=== PATIENT | female | born 1945 | race Caucasian/White ===

== ENCOUNTER 2016-11-29 18:13 | Inpatient (IN) | payer MEDICARE, BC ==
[~2016-11-29] VITALS: Ht 157.5 cm; Wt 101.8 kg
[2016-11-29] VITALS (13 sets, daily range): BP systolic 172–222; BP diastolic 77–113; PULSE 64–86; RESP 16–20; TEMP 96.4–98.2; O2SAT 94–99
[~2016-11-29 18:13] MED LIST: AZAT50 PO; MAGN400T PO; PRIN20TA2 PO; PROG1CAP PO; PROT40TA PO; TOPR50TA PO
[2016-11-29] MEDS ORDERED: SODIUM CHLORIDE 0.9% FLUSH 10 ML FLUSH IVF PRN (18:30)
[2016-11-29] MEDS ORDERED: ASPIRIN 81 MG CHEW TAB PO ONE (18:30)
--- NOTE | 2016-11-29 18:31 | PD ---
HPI Chief Complaint: Chest Pain Time Seen by Provider: 18:26 Travel History International Travel<30 days: No Contact w/Intl Traveler<30days: No Traveled to known affect area: No History of Present Illness HPI Patient is a 71-year-old female comes in complaining of chest pain radiating to her left shoulder. She says she had an episode last night, but it went away after she took 2 aspirin and rested. She says this evening she was with a friend having a drinking waiting for dinner when the pain suddenly came on again. She says it's a pressure in her chest and she had some diaphoresis as well as nausea and shortness of breath with this. She says she's never had pain like this before. She was seen by applications support engineer a few years ago, said she had a stress test then that was normal, and has not seen him since. She does follow regularly with her primary care doctor. 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) Psychiatric: No Reproductive: No Respiratory: Yes Renal Failure: Yes (PD catheter removed April 2009) Sleep Apnea: Yes Thyroid Disease: No Menopausal: Yes Past Surgical History Abdominal Surgery: Yes (tenchoff catheter placement) Cardiac Surgery: No Ear Surgery: No Endocrine Surgery: No Eye Surgery: No Genitourinary Surgery: No Gynecologic Surgery: Yes (vaginal hys) Hysterectomy: Yes Joint Replacement: No Oral Surgery: Yes (total mouth extraction) Pacemaker: No Thoracic Surgery: No Other Surgery: Yes (right side kidney transplant) Social History Alcohol Use: Yes (rare occ) Tobacco Use: No Substance Use: No Allergies-Medications (Allergen,Severity, Reaction): Coded Allergies: adhesive (Unverified Allergy, Severe, 11/29/16) Reported Meds & Prescriptions Reported Meds & Active Scripts Active Reported Lisinopril 20 Mg Tab 20 Mg PO DAILY Toprol XL (Metoprolol Succinate) 50 Mg Tab 50 Mg PO DAILY Pantoprazole (Pantoprazole Sodium) 40 Mg Tab 40 Mg PO DAILY Tacrolimus 1 Mg Cap 1 Mg PO Q12H Review of Systems Except as stated in HPI: all other systems reviewed are Neg General / Constitutional: No: Fever, Chills Eyes: No: Blurred Vision HENT: No: Headaches, Lightheadedness Cardiovascular: Positive: Chest Pain or Discomfort Respiratory: Positive: Shortness of Breath Gastrointestinal: Positive: Nausea, No: Vomiting, Abdominal Pain Musculoskeletal: Positive: Pain, No: Edema Skin: No Rash, No Change in Pigmentation Neurologic: No: Weakness, Dizziness Physical Exam Narrative GENERAL: Awake and alert, in no acute distress. SKIN: Focused skin assessment warm/dry. HEAD: Atraumatic. Normocephalic. EYES: Pupils equal and round. No scleral icterus. ENT: Mucous membranes pink and moist. NECK: Trachea midline. No JVD. CARDIOVASCULAR: Regular rate and rhythm. No murmur appreciated. RESPIRATORY: No accessory muscle use. Clear to auscultation. Breath sounds equal bilaterally. GASTROINTESTINAL: Abdomen soft, non-tender, nondistended. Hepatic and splenic margins not palpable. MUSCULOSKELETAL: No obvious deformities. No clubbing. No cyanosis. Bilateral edema of the ankles. NEUROLOGICAL: Awake and alert. No obvious cranial nerve deficits. Motor grossly within normal limits. Normal speech. PSYCHIATRIC: Appropriate mood and affect; insight and judgment normal. Data Data Last Documented VS Vital Signs Date Time Temp Pulse Resp B/P (MAP) Pulse Ox O2 Delivery O2 Flow Rate FiO2 11/29/16 18:52 18 11/29/16 18:42 72 198/82 (120) 98 Room Air 11/29/16 18:15 98.2 Orders Orders Ckmb (Isoenzyme) Profile (11/29/16 18:27) Complete Blood Count With Diff (11/29/16 18:27) Comprehensive Metabolic Panel (11/29/16 18:27) Prothrombin Time / Inr (Pt) (11/29/16 18:27) Act Partial Throm Time (Ptt) (11/29/16 18:27) Troponin I (11/29/16 18:27) Chest, Single Ap (11/29/16 18:27) Ecg Monitoring (11/29/16 18:27) Bilateral Bp Monitoring (11/29/16 18:27) Iv Access Insert/Monitor (11/29/16 18:27) Oximetry (11/29/16 18:27) Oxygen Administration (11/29/16 18:27) Aspirin Chew (Aspirin Chew) (11/29/16 18:30) Sodium Chloride 0.9% Flush (Ns Flush) (11/29/16 18:30) Nitroglycerin Sl (Nitrostat Sl) (11/29/16 18:30) Labs Laboratory Tests Test 11/29/16 18:15 White Blood Count 7.7 TH/MM3 Red Blood Count 4.96 MIL/MM3 Hemoglobin 14.3 GM/DL Hematocrit 44.4 % Mean Corpuscular Volume 89.4 FL Mean Corpuscular Hemoglobin 28.8 PG Mean Corpuscular Hemoglobin Concent 32.2 % Red Cell Distribution Width 12.5 % Platelet Count 201 TH/MM3 Mean Platelet Volume 10.0 FL Neutrophils (%) (Auto) 61.6 % Lymphocytes (%) (Auto) 27.1 % Monocytes (%) (Auto) 7.3 % Eosinophils (%) (Auto) 3.7 % Basophils (%) (Auto) 0.3 % Neutrophils # (Auto) 4.7 TH/MM3 Lymphocytes # (Auto) 2.1 TH/MM3 Monocytes # (Auto) 0.6 TH/MM3 Eosinophils # (Auto) 0.3 TH/MM3 Basophils # (Auto) 0.0 TH/MM3 CBC Comment DIFF FINAL Differential Comment MDM Medical Decision Making Medical Screen Exam Complete: Yes Emergency Medical Condition: Yes Interpretation(s) ECG shows normal sinus rhythm at 84, no ST elevation or depression. There is T- wave inversions in lead 3 and aVF. Differential Diagnosis ACS versus NSTEMI versus STEMI versus pneumonia versus pneumothorax Narrative Course Patient is a 71-year-old female who comes in complaining of chest pain radiating to her left arm. Exam shows no acute abnormalities. IV established, labs sent. Patient connected to the purchasing department clerk. Patient given aspirin as well as nitroglycerin. Patient signed out to Dr. Steinberg to follow up testing and disposition the patient. Diagnosis Primary Impression: Chest pain Qualified Codes: R07.9 - Chest pain, unspecified Delfina Astorga MD Nov 29, 2016 18:31
[2016-11-29] MEDS ORDERED: LISI-515 PO (18:32)
[2016-11-29] MEDS ORDERED: TACR1CAP PO (18:32)
[2016-11-29] MEDS ORDERED: TOPR50TA PO (18:32)
[2016-11-29] MEDS ORDERED: PANT40TA3 PO (18:32)
[2016-11-29] MEDS: NITROGLYCERIN 0.4 MG SL 25 TABS/BTL SL SCH ×3 (18:47→19:00)
[2016-11-29 18:51] LABS: AUTOMATED NEUTROPHIL # 4.7 TH/MM3 (1.8-7.7); BASOPHIL % 0.3 % (0.0-2.0); EOSINOPHIL # 0.3 TH/MM3 (0-0.4); EOSINOPHIL % 3.7 % (0.0-4.0); HEMATOCRIT 44.4 % (35.0-46.0); HEMO FLAGS DIFF FINAL; LYMPH % 27.1 % (9.0-44.0); LYMPHOCYTE # 2.1 TH/MM3 (1.0-4.8); MEAN CELL VOLUME 89.4 FL (80.0-100.0); MEAN CORPUSCULAR HEMOGLOBIN 28.8 PG (27.0-34.0); MEAN CORPUSCULAR HGB CONC 32.2 % (32.0-36.0); MONO % 7.3 % (0.0-8.0); NEUT % 61.6 % (16.0-70.0); PLATELET COUNT 201 TH/MM3 (150-450); RED BLOOD COUNT 4.96 MIL/MM3 (4.00-5.30); RED CELL DISTRIBUTION WIDTH 12.5 % (11.6-17.2); WHITE BLOOD COUNT 7.7 TH/MM3 (4.0-11.0)
--- NOTE | 2016-11-29 18:59 | RADRPT ---
EXAM DATE/TIME: 11/29/2016 18:42 [facility] COMPARISON: No previous studies available for comparison. INDICATIONS : Chest pain, short of breath MEDICAL HISTORY : Chronic obstructive pulmonary disease. SURGICAL HISTORY : Kidney transplant ENCOUNTER: Initial ACUITY: 1 day PAIN SCORE: 7/10 LOCATION: Bilateral chest FINDINGS: There is mild interstitial prominence, generally worse on the left than the right. No evidence of rufus eolar consolidation or significant effusion. Cardiac contours are satisfactory. CONCLUSION: Fairly diffuse interstitial prominence. Charles Dexter MD on November 29, 2016 at 18:57 Board Certified Radiologist. This report was verified electronically.
[2016-11-29 19:02] LABS: CHLORIDE 105 MEQ/L (98-107); POTASSIUM 3.5 MEQ/L (3.5-5.1); SODIUM (NA) 139 MEQ/L (136-145)
[2016-11-29 19:05] LABS: ANION GAP 9 MEQ/L (5-15); BICARBONATE 24.8 MEQ/L (21.0-32.0)
[2016-11-29 19:06] LABS: BLOOD UREA NITROGEN 26 MG/DL (7-18)
[2016-11-29 19:08] LABS: ALT (GPT) 21 U/L (10-53); INTERNATIONAL NORMALIZED RATIO 0.9 RATIO; PROTHROMBIN TIME - PATIENT 10.3 SEC (9.8-11.6)
[2016-11-29 19:09] LABS: AST (GOT) 14 U/L (15-37); GLOMERULAR FILTRATION RATE 44 ML/MIN (>89)
[2016-11-29 19:10] LABS: TOTAL BILIRUBIN ADULT 0.4 MG/DL (0.2-1.0)
[2016-11-29 19:11] LABS: ALKALINE PHOSPHATASE 99 U/L (45-117)
[2016-11-29 19:40] LABS: CREATINE KINASE 41 U/L (26-192)
--- NOTE | 2016-11-29 19:53 | PD ---
Physical Exam Time Seen by Provider: 19:[address] Bailon left this patient with me to check the laboratory and make a disposition. Data Data Last Documented VS Vital Signs Date Time Temp Pulse Resp B/P (MAP) Pulse Ox O2 Delivery O2 Flow Rate FiO2 11/29/16 19:26 64 18 178/94 (122) 94 Room Air 189/92 (124) 11/29/16 18:15 98.2 Orders Orders Ckmb (Isoenzyme) Profile (11/29/16 18:27) Complete Blood Count With Diff (11/29/16 18:27) Comprehensive Metabolic Panel (11/29/16 18:) Prothrombin Time / Inr (Pt) (11/29/16 18:) Act Partial Throm Time (Ptt) (11/29/16 18:) Troponin I (11/29/16 18:27) Chest, Single Ap (11/29/16 18:27) Ecg Monitoring (11/29/16 18:27) Bilateral Bp Monitoring (11/29/16 18:27) Iv Access Insert/Monitor (11/29/16 18:) Oximetry (11/29/16 18:27) Oxygen Administration (11/29/16 18:27) Aspirin Chew (Aspirin Chew) (11/29/16 18:30) Sodium Chloride 0.9% Flush (Ns Flush) (11/29/16 18:30) Nitroglycerin Sl (Nitrostat Sl) (11/29/16 18:30) B-Type Natriuretic Peptide (11/29/16 19:08) Hydralazine Inj (Apresoline Inj) (11/29/16 20:00) Labs Laboratory Tests Test 11/29/16 18:15 White Blood Count 7.7 TH/MM3 Red Blood Count 4.96 MIL/MM3 Hemoglobin 14.3 GM/DL Hematocrit 44.4 % Mean Corpuscular Volume 89.4 FL Mean Corpuscular Hemoglobin 28.8 PG Mean Corpuscular Hemoglobin Concent 32.2 % Red Cell Distribution Width 12.5 % Platelet Count 201 TH/MM3 Mean Platelet Volume 10.0 FL Neutrophils (%) (Auto) 61.6 % Lymphocytes (%) (Auto) 27.1 % Monocytes (%) (Auto) 7.3 % Eosinophils (%) (Auto) 3.7 % Basophils (%) (Auto) 0.3 % Neutrophils # (Auto) 4.7 TH/MM3 Lymphocytes # (Auto) 2.1 TH/MM3 Monocytes # (Auto) 0.6 TH/MM3 Eosinophils # (Auto) 0.3 TH/MM3 Basophils # (Auto) 0.0 TH/MM3 CBC Comment DIFF FINAL Differential Comment Prothrombin Time 10.3 SEC Prothromb Time International Ratio 0.9 RATIO Activated Partial Thromboplast Time 25.0 SEC Blood Urea Nitrogen 26 MG/DL Creatinine 1.20 MG/DL Random Glucose 120 MG/DL Total Protein 7.6 GM/DL Albumin 3.7 GM/DL Calcium Level 8.8 MG/DL Alkaline Phosphatase 99 U/L Aspartate Amino Transf (AST/SGOT) 14 U/L Alanine Aminotransferase (ALT/SGPT) 21 U/L Total Bilirubin 0.4 MG/DL Sodium Level 139 MEQ/L Potassium Level 3.5 MEQ/L Chloride Level 105 MEQ/L Carbon Dioxide Level 24.8 MEQ/L Anion Gap 9 MEQ/L Estimat Glomerular Filtration Rate 44 ML/MIN Total Creatine Kinase 41 U/L Troponin I LESS THAN 0.02 NG/ML B-Type Natriuretic Peptide 226 PG/ML MDM Medical Record Reviewed: Yes Supervised Visit with ALEX: No Interpretation(s) The CBC is normal. The complete metabolic profile shows a BUN of 26, creatinine 1. and GFR of 44 but is otherwise unremarkable. The BNP is 226. The troponin I is normal and the total CK is normal. The coagulation profile is normal. Differential Diagnosis Acute coronary syndrome, pleuritic pain, chest wall pain, esophageal pain, gastrointestinal pain, electrolyte disorder, anemia, pneumothorax, pneumonia, uncontrolled hypertension, chest pain etiology undetermined Narrative Course After 3 nitroglycerin sublingual for blood pressure is 189/92. Also, the patient still has some slight chest pain, 2/10. The patient will be admitted here at [facility] for chest pain and hypertension poor control. Dr. Harrison and is the patient's primary care physician and Dr. Nicholson is her efficiency miner blasting. The chest pain is concerning for unstable angina. Diagnosis Primary Impression: Chest pain Qualified Codes: R07.9 - Chest pain, unspecified Additional Impression: Hypertension, poor control Admitting Information Admitting Physician Requests: Observation Raji Steinberg MD Nov 29, 2016 19:53
[2016-11-29] MEDS ORDERED: hydrALAZINE HCL 20 MG/ML VIAL IV PUSH ONE (20:00)
[2016-11-29] MEDS ORDERED: SODIUM CHLORIDE 0.9% FLUSH 10 ML FLUSH IV FLUSH PRN (20:15)
[2016-11-29] MEDS ORDERED: ACETAMINOPHEN 325 MG TAB PO PRN (20:15)
[2016-11-29] MEDS ORDERED: METOPROLOL TARTRATE 5 MG/5 ML VIAL IV PUSH ONE (20:15)
[2016-11-29] MEDS ORDERED: SENNOSIDES 8.6 MG TAB PO PRN (20:15)
[2016-11-29] MEDS ORDERED: LACTULOSE SYRUP 20 GM/30 ML CUP PO PRN (20:15)
[2016-11-29] MEDS ORDERED: MAGNESIUM HYDROXIDE SUSP 30 ML CUP PO PRN (20:15)
[2016-11-29] MEDS ORDERED: BISACODYL 10 MG SUPP RECTAL PRN (20:15)
[2016-11-29] MEDS: DOCUSATE SODIUM 50 MG/SENNA 8.6 MG TAB PO SCH (21:00)
[2016-11-29] MEDS: SODIUM CHLORIDE 0.9% FLUSH 10 ML FLUSH IV FLUSH SCH (21:59)
[2016-11-29] MEDS: TACROLIMUS 1 MG CAP PO SCH (21:59)
[2016-11-30] VITALS (8 sets, daily range): BP systolic 142–196; BP diastolic 67–89; PULSE 74–89; RESP 13–24; TEMP 96.1–98.2; O2SAT 91–99
[2016-11-30] MEDS: HEPARIN-D5W 25,000 U/250 ML 250 ML IV PRN (05:11)
--- NOTE | 2016-11-30 05:56 | EKG ---
Date Performed: 11/29/2016 Time Performed: 18:17:45 PTAGE: 71 years EKG: Sinus rhythm ABNORMAL QRS-T ANGLE ABNORMAL ECG INTERPRETATION BASED ON A DEFAULT AGE OF 41 YEARS NO PREVIOUS TRACING DOCTOR: Charanjit Garrido Interpretating Date/Time 11/30/2016 05:53:55
[2016-11-30] MEDS: MORPHINE SULFATE 4 MG/ML INJ IV PUSH PRN ×2 (06:00→14:52)
[2016-11-30] MEDS: ONDANSETRON HCL 4 MG/2 ML VIAL IVP PRN (06:05)
[2016-11-30 07:53] LABS: AUTOMATED NEUTROPHIL # 6.9 TH/MM3 (1.8-7.7); BASOPHIL % 0.1 % (0.0-2.0); EOSINOPHIL # 0.1 TH/MM3 (0-0.4); EOSINOPHIL % 1.6 % (0.0-4.0); HEMATOCRIT 43.8 % (35.0-46.0); HEMO FLAGS DIFF FINAL; LYMPH % 11.1 % (9.0-44.0); LYMPHOCYTE # 0.9 TH/MM3 (1.0-4.8); MONO % 5.8 % (0.0-8.0); NEUT % 81.4 % (16.0-70.0); PLATELET COUNT 153 TH/MM3 (150-450); RED BLOOD COUNT 4.97 MIL/MM3 (4.00-5.30); RED CELL DISTRIBUTION WIDTH 12.1 % (11.6-17.2); WHITE BLOOD COUNT 8.4 TH/MM3 (4.0-11.0)
[2016-11-30 07:59] LABS: CHLORIDE 103 MEQ/L (98-107); POTASSIUM 3.2 MEQ/L (3.5-5.1); SODIUM (NA) 138 MEQ/L (136-145)
[2016-11-30 08:03] LABS: ANION GAP 11 MEQ/L (5-15); APTT (PATIENT) 30.5 SEC (24.3-30.1); BICARBONATE 24.5 MEQ/L (21.0-32.0); BLOOD UREA NITROGEN 19 MG/DL (7-18); PROTHROMBIN TIME - PATIENT 10.7 SEC (9.8-11.6)
[2016-11-30 08:06] LABS: ALT (GPT) 19 U/L (10-53); AST (GOT) 16 U/L (15-37); GLOMERULAR FILTRATION RATE 63 ML/MIN (>89)
[2016-11-30 08:08] LABS: TOTAL BILIRUBIN ADULT 0.7 MG/DL (0.2-1.0)
[2016-11-30 08:09] LABS: ALKALINE PHOSPHATASE 86 U/L (45-117)
[2016-11-30] MEDS: DOCUSATE SODIUM 50 MG/SENNA 8.6 MG TAB PO SCH ×2 (08:26→21:00)
[2016-11-30] MEDS: ASPIRIN EC 81 MG TABEC PO SCH (08:27)
[2016-11-30] MEDS: PANTOPRAZOLE SOD 40 MG DELAYED RELEASE TAB PO SCH (08:27)
[2016-11-30] MEDS: LISINOPRIL 20 MG TAB PO SCH (08:27)
[2016-11-30] MEDS: SODIUM CHLORIDE 0.9% FLUSH 10 ML FLUSH IV FLUSH SCH ×2 (08:36→21:09)
[2016-11-30] MEDS: TACROLIMUS 1 MG CAP PO SCH ×2 (08:36→21:08)
[2016-11-30] MEDS ORDERED: METOPROLOL SUCCINATE 50 MG EXTENDED RELEASE TAB PO SCH (09:00)
[2016-11-30] MEDS: NITROGLYCERIN 2% OINT 1 GM PACKET TOP SCH ×4 (09:10→23:33)
[2016-11-30] MEDS ORDERED: ASPIRIN 81 MG CHEW TAB CHEW ONE (09:30)
--- NOTE | 2016-11-30 10:02 | HHI.HP ---
[facility] Primary Care Physician No Primary Care Physician Admission Diagnosis chest pain, hypertension poor control Diagnoses: (1) NSTEMI (non-ST elevated myocardial infarction) Diagnosis: Principal (2) Hypertensive emergency Diagnosis: Principal (3) Acute kidney injury superimposed on chronic kidney disease Diagnosis: Principal (4) Hypokalemia Diagnosis: Principal Chief Complaint: chest pain Travel History International Travel<30 Days: No Contact w/Intl Traveler <30 Da: No Traveled to Known Affected Are: No History of Present Illness Patient evaluated at ~0840. 71-year-old female with history of hypertension, diet-controlled diabetes, COPD, sleep apnea, right kidney transplant in 2009, and family h/o early CAD presents with complaint of chest pain. Patient states she had a "little episode" of chest pain on Thursday night which lasted about one hour. She took two 81 mg aspirin at that time and sat down and went to bed. She states yesterday she felt a little short of breath but she did her chores but then last night she went out and started to feel "terrible" substernal chest pain described as "pressure". She admits to radiation of pain to the left shoulder with associated diaphoresis, shortness of breath, and nausea. She also had a mild headache at that time. She states the pain was still present upon arrival to the ED. The patient did receive 3 doses of nitroglycerin in the ED as well as 324 mg of aspirin. The patient states the pain has been intermittent since it started. She does admit to chest pain being worse on exertion. She also has dyspnea on exertion. She states she has some palpitations yesterday and this morning. She states earlier it did feel like a "cannonball" was sitting on her chest and currently it feels like a "cantaloupe ". She was given 2 mg of IV morphine at 6 AM this morning, but she states it made her feel nauseous and she was given Zofran. She denies any numbness or tingling in the upper extremities, focal extremity weakness, blurred vision, double vision, dizziness, lightheadedness, or syncope. She admits to chronic swelling in the left leg stating she has poor circulation. She denies any recent fevers or chills, cold or cough symptoms. Denies any abdominal pain, vomiting, dysuria, diarrhea, constipation. Denies h/o HLD. She had a nuclear stress test followed by cardiac catheterization years ago by Dr. Nicholson, but required no intervention. She has not seen Dr. Nicholson in years. When she was in her late 30's she was told by a doctor that she had a previous IA (possibly from EKG?). Patient states she has been stressed as her sister's has cancer and her sister is the fire claims adjuster for both he and herself. Review of Systems Constitutional: COMPLAINS OF: Diaphoretic episodes, DENIES: Fever, Chills, Dizziness Eyes: DENIES: Blurred vision, Double Vision Ears, nose, mouth, throat: DENIES: Throat pain, Ear Pain, Running Nose Respiratory: COMPLAINS OF: Shortness of breath, DENIES: Cough Cardiovascular: COMPLAINS OF: Chest pain, Palpitations, Dyspnea on Exertion, Lower Extremity Edema, DENIES: Syncope Gastrointestinal: COMPLAINS OF: Nausea, DENIES: Abdominal pain, Constipation, Diarrhea, Vomiting Genitourinary: DENIES: Dysuria Integumentary: DENIES: Rash Neurologic: COMPLAINS OF: Headache, DENIES: Localized weakness, Paresthesias Except as stated in HPI: all other systems reviewed are Neg ENT:+ "dripping" feeling in R ear x 1 month Past Family Social History Past Medical History Hypertension Diet-controlled diabetes COPD Sleep apnea; does not use CPAP due to claustrophobia History of renal failure with peritoneal dialysis; catheter was removed a few months after kidney transplant. History of RSD in the left leg; patient states pain has gone away. NLD Left leg Past Surgical History Right kidney transplant in April 2009 Total teeth extraction; upper and lower dentures since age 17 Hysterectomy Skin cancers removed from the nose and lip Reported Medications Reported Meds & Active Scripts Active Reported Lisinopril 20 Mg Tab 20 Mg PO DAILY Toprol XL (Metoprolol Succinate) 50 Mg Tab 50 Mg PO BID Pantoprazole (Pantoprazole Sodium) 40 Mg Tab 40 Mg PO QOD (Patient denies h/o GERD; states she was placed on this for prophylaxis due to all of the medications she was taking at the time of kidney transplant). Tacrolimus 1 Mg Cap 1 Mg PO Q12H Aspirin 81 mg po daily Fish oil CoQ10 Allergies: Coded Allergies: adhesive (Unverified Allergy, Severe, 11/29/16) Family History Mother: Old age onset diabetes mellitus; at age 86 from lung cancer which metastasized to the brain. Father: First IA at age 46; of IA at age 66. Paternal grandmother: of an IA in her sleep. She had 2 siblings both of whom had MIs, one of them in their 50s. Social History Lives alone. Patient drinks 2 alcoholic beverages once per week. She quit smoking cigarettes in 1980. Prior to this she smoked a couple of packs per day and started smoking at age 16. Denies illicit drug use. Physical Exam Vital Signs Vital Signs Date Time Temp Pulse Resp B/P (MAP) Pulse Ox O2 Delivery O2 Flow Rate FiO2 11/30/16 08:00 96.5 83 18 149/77 (101) 92 11/30/16 04:00 96.1 82 20 193/89 (123) 95 11/30/16 00:00 96.1 74 20 153/71 (98) 96 11/29/16 21:50 96.4 79 20 175/77 (109) 99 11/29/16 20:45 69 18 172/85 (114) 97 Room Air 11/29/16 20:39 72 18 192/83 (119) 97 Room Air 11/29/16 20:33 66 18 222/90 (134) 95 Room Air 11/29/16 20:25 68 18 199/113 (141) 95 Room Air 11/29/16 19:53 64 16 198/90 (126) 95 Room Air 11/29/16 19:26 64 18 178/94 (122) 94 Room Air 189/92 (124) 11/29/16 19:03 16 11/29/16 19:03 66 16 172/84 (113) 95 Room Air 11/29/16 19:00 64 18 94 Room Air 11/29/16 18:58 74 18 187/85 (119) 95 Room Air 11/29/16 18:50 70 18 191/88 (122) 95 Room Air 11/29/16 18:42 72 18 198/82 (120) 98 Room Air 11/29/16 18:15 98.2 86 18 222/98 (139) 98 Physical Exam GENERAL: This is a pleasant well-nourished, well-developed patient, in no apparent distress. SKIN: Warm and dry. Brown pigmentation over the Left ankle, appears as venous stasis. Circular red spots to the left lower leg appearing as ecchymosis, but patient states these are scars from prior NLD. HEAD: Atraumatic. Normocephalic. EYES: No scleral icterus. No injection or drainage. ENT: Tongue slightly dry. NECK: Trachea midline. CARDIOVASCULAR: Mildly tachycardic rate with regular rhythm. No murmurs, gallops , or rubs. RESPIRATORY: Clear to auscultation. Breath sounds equal bilaterally. No wheezes , rales, or rhonchi. RR normal. GASTROINTESTINAL: Normoactive bowel sounds. Abdomen soft, non-tender, nondistended. No guarding. MUSCULOSKELETAL: Trace pitting pre-tibial edema bilaterally. Left lower leg appears more swollen than right. See Skin. 2+ DP and TP pulses bilaterally. BACK: No CVA tenderness bilaterally. NEUROLOGICAL: Awake and alert. Motor grossly within normal limits. Five out of 5 muscle strength in B/L arms and legs. Normal speech. PSYCHIATRIC: Normal mood and affect. Insight and judgement normal. Laboratory Laboratory Tests Test 11/29/16 18:15 11/30/16 00:35 11/30/16 06:38 White Blood Count 7.7 8.4 Red Blood Count 4.96 4.97 Hemoglobin 14.3 14.4 Hematocrit 44.4 43.8 Mean Corpuscular Volume 89.4 88.0 Mean Corpuscular Hemoglobin 28.8 29.0 Mean Corpuscular Hemoglobin Concent 32.2 33.0 Red Cell Distribution Width 12.5 12.1 Platelet Count 201 153 Mean Platelet Volume 10.0 10.0 Neutrophils (%) (Auto) 61.6 81.4 Lymphocytes (%) (Auto) 27.1 11.1 Monocytes (%) (Auto) 7.3 5.8 Eosinophils (%) (Auto) 3.7 1.6 Basophils (%) (Auto) 0.3 0.1 Neutrophils # (Auto) 4.7 6.9 Lymphocytes # (Auto) 2.1 0.9 Monocytes # (Auto) 0.6 0.5 Eosinophils # (Auto) 0.3 0.1 Basophils # (Auto) 0.0 0.0 CBC Comment DIFF FINAL DIFF FINAL Differential Comment Prothrombin Time 10.3 10.7 Prothromb Time International Ratio 0.9 1.0 Activated Partial Thromboplast Time 25.0 30.5 Blood Urea Nitrogen 26 19 Creatinine 1.20 0.89 Random Glucose 120 166 Total Protein 7.6 7.4 Albumin 3.7 3.7 Calcium Level 8.8 9.0 Alkaline Phosphatase 99 86 Aspartate Amino Transf (AST/SGOT) 14 16 Alanine Aminotransferase (ALT/SGPT) 21 19 Total Bilirubin 0.4 0.7 Sodium Level 139 138 Potassium Level 3.5 3.2 Chloride Level 105 103 Carbon Dioxide Level 24.8 24.5 Anion Gap 9 11 Estimat Glomerular Filtration Rate 44 63 Total Creatine Kinase 41 Troponin I LESS THAN 0.02 0.90 0.92 B-Type Natriuretic Peptide 226 Result Diagram: 11/30/16 0638 11/30/16 0949 Imaging Last Impressions Chest X-Ray 11/29/161826 Signed Impressions: Service Date/Time: Tuesday, November 29, 2016 18:42 - CONCLUSION: Fairly diffuse interstitial prominence. MD Brii Apodaca VTE Risk Assessment Caprini VTE Risk Assessment: Mod/High Risk (score >= 2) Caprini Risk Assessment Model Point Value = 1 Point Value = 2 Point Value = 3 Point Value = 5 Age 41-60 Minor surgery BMI > 25 kg/m2 Swollen legs Varicose veins or History of unexplained or recurrent spontaneous Oral contraceptives or hormone replacement Sepsis (< 1 month) Serious lung disease, including pneumonia (< 1 month) Abnormal pulmonary function Acute myocardial infarction Congestive heart failure (< 1 month) History of inflammatory bowel disease Medical patient at bed rest Age 61-74 Arthroscopic surgery Major open surgery (> 45 min) Laparoscopic surgery (> 45 min) Malignancy Confined to bed (> 72 hours) Immobilizing plaster cast Central venous access Age >= 75 History of VTE Family history of VTE Factor V Leiden Prothrombin [id number] Lupus anticoagulant Anticardiolipin antibodies Elevated serum homocysteine Heparin-induced thrombocytopenia Other congenital or acquired thrombophilia Stroke (< 1 month) Elective arthroplasty Hip, pelvis, or leg fracture Acute spinal cord injury (< 1 month) Prophylaxis Regimen Total Risk Factor Score Risk Level Prophylaxis Regimen 0-1 Low Early ambulation 2 Moderate Order ONE of the following: *Sequential Compression Device (SCD) *Heparin 5000 units SQ BID 3-4 Higher Order ONE of the following medications: *Heparin 5000 units SQ TID *Enoxaparin/Lovenox 40 mg SQ daily (WT < 150 kg, CrCl > 30 mL/min) *Enoxaparin/Lovenox 30 mg SQ daily (WT < 150 kg, CrCl > 10-29 mL/min) *Enoxaparin/Lovenox 30 mg SQ BID (WT < 150 kg, CrCl > 30 mL/min) AND/OR *Sequential Compression Device (SCD) 5 or more Highest Order ONE of the following medications: *Heparin 5000 units SQ TID (Preferred with Epidurals) *Enoxaparin/Lovenox 40 mg SQ daily (WT < 150 kg, CrCl > 30 mL/min) *Enoxaparin/Lovenox 30 mg SQ daily (WT < 150 kg, CrCl > 10-29 mL/min) *Enoxaparin/Lovenox 30 mg SQ BID (WT < 150 kg, CrCl > 30 mL/min) AND *Sequential Compression Device (SCD) Assessment and Plan Assessment and Plan 71-year-old female with: NSTEMI: Patient had classic symptoms of substernal chest pressure with radiation to the left shoulder with associated diaphoresis, shortness of breath , and nausea. Initial troponin was less than 0.02 but increased to 0.9 overnight and remained at 0.92 this morning. Only one EKG was done from yesterday. EKG was personally interpreted which showed no ST elevation; there is T wave inversion in lead III and questionable ST depression in lead aVF. Patient still with active chest pain although improved from prior. Chest x-ray personally interpreted with diffuse mild interstitial prominence worse on the left; no effusion or consolidation. The patient may likely have some mild pulmonary edema secondary to acute IA, but BNP is only mildly elevated at 226, lungs are clear, RR normal, and patient only has trace edema of lower legs. O2 sat mildly decreased at 92% this morning. -Patient was started on IV heparin drip last night -Nitroglycerin ointment ordered to be placed on now and scheduled every 6 hours -Cardiology was consulted at 0440, but was not called. I called Dr. Arana this morning. He recommends continuing heparin drip, starting Aggrastat, beta ruma, aspirin, administering high dose statin. Agrees with Nitro. Transfer to [facility]. -Patient received 81 mg of aspirin this morning. Will order an additional 243 mg of chewable aspirin. -Continue Metoprolol -Atorvastatin 80 mg po once -Aggrastat bolus and drip started with labs -Morphine prn -Monitor pulse oximetry, O2 as needed for cp and sob -Hemoglobin A1c ordered -Lipid profile ordered -Telemetry -NPO Hypertensive emergency: BP 222/98 on presentation. Remained elevated overnight. Patient was given 5 mg IV Metoprolol at 2040. BP did improve to 149/77 this morning. -Patient to continue home metoprolol succinate 50 mg by mouth twice a day (as opposed to daily as written in med rec) -Continue home Lisinopril 20 mg po daily -Nitro -I was called at ~noon. RN tells me patient's BP is again elevated at 196/88, HR 90. Will order hydralazine 10 mg q4h prn SBP/DBP >/= 180/100. EMERSON on CKD: BUN/Cr 26/1.20 yesterday resolved this morning. Upon review of previous labs, patient appears to have CKD Stage 3. H/o kidney transplant. -Monitor BMP Hypokalemia: K+ 3.2 this morning. -40 mEq po KCl ordered -Mg level 1.5. Will order 2g MgSO4 IV -Repeat am BMP and Mg level. S/p R kidney transplant in 2009: Continue Tacrolimus. GI prophylaxis: Protonix DVT prophylaxis: SCDs, on heparin IV Admitted to inpatient. Code Status FULL CODE Discussed Condition With patient, RN, Dr. Arana, Dr. Boudreaux Physician Certification 2 Midnight Certification Type: Admission for Inpatient Services Order for Inpatient Services The services are ordered in accordance with Medicare regulations or non- Medicare payer requirements, as applicable. In the case of services not specified as inpatient-only, they are appropriately provided as inpatient services in accordance with the 2-midnight benchmark. Estimated LOS (days): 2 2 days is the estimated time the patient will need to remain in the hospital, assuming treatment plan goals are met and no additional complications. Post-Hospital Plan: Not yet determined Annamaria Alva Nov 30, 2016 10:02
[2016-11-30] MEDS ORDERED: POTASSIUM CHLORIDE 20 MEQ CONTROLLED RELEASE TAB PO ONE (10:15)
[2016-11-30] MEDS ORDERED: TIROFIBAN BOLUS IV ONE (10:30)
[2016-11-30] MEDS ORDERED: ATORVASTATIN 80 MG TAB PO ONE (11:00)
[2016-11-30] MEDS: TIROFIBAN INFUSION INJ 250 ML IV SCH (11:57)
[2016-11-30] MEDS ORDERED: hydrALAZINE HCL 20 MG/ML VIAL IV PUSH PRN (12:15)
--- NOTE | 2016-11-30 13:02 | MB ---
cc: REYNAELIZABETH DATE OF CONSULTATION: 11/30/2016. HISTORY OF PRESENT ILLNESS: A 71-year-old white female with a history of hypertension, diabetes mellitus and kidney transplant in 2009 who has had shortness of breath for the last two weeks. She developed substernal chest discomfort on Thursday night. The pain radiated into the left shoulder and it was associated with diaphoresis, shortness of breath, nausea and mild headache. The patient presented to the [facility] Emergency Room. She has been ruled in for a myocardial infarction by enzymes. She has some mild discomfort in the lower substernal area but her symptoms are markedly improved on medical therapy. She has had increased blood pressure. PAST MEDICAL HISTORY: Her past medical history is positive for: 1. Hypertension. 2. Diabetes mellitus. 3. COPD. 4. Sleep apnea. 5. Renal failure. 6. Kidney transplant in 2009. 7. left leg. 8. left leg. 9. Teeth extraction. 10. Hysterectomy. 11. Skin cancer surgery. MEDICATIONS: 1. Tacrolimus. 2. Pantoprazole. 3. Toprol XL 50 milligrams twice a day. 4. Lisinopril 20 milligrams a day. ALLERGIES: None. SOCIAL HISTORY: The patient does not smoke. She drinks two drinks a week. FAMILY HISTORY: Family history is positive for heart disease in her father at an early age. REVIEW OF SYSTEMS: The review of systems is otherwise negative. PHYSICAL EXAMINATION: VITAL SIGNS: Blood pressure 190/80, pulse 85 and regular. HEAD, EYES, EARS, NOSE, THROAT: Negative. NECK: 2+ carotid upstrokes, no bruits. LUNGS: Clear. HEART: Regular rate and rhythm with no murmurs, rubs or gallops. ABDOMEN: Abdomen soft. No bruits. EXTREMITIES: 2+ distal pulses. NEUROLOGIC: Grossly nonfocal. EKGS: EKG was reviewed and showed normal sinus rhythm with normal axis and intervals, nonspecific inferior S-T-T changes. LABORATORY DATA: Hemoglobin 14.4. Potassium 3.2 and creatinine 0.9. AST 16, ALT 19. Troponin 0.90 and 0.92. BNP 226. DIAGNOSIS: 1. Non-S-T elevation myocardial infarction. 2. History of renal transplant. 3. Hypertension. 4. Diabetes mellitus. 5. COPD. 6. Sleep apnea. DISPOSITION: 1. Ms. Acuña will be monitored on telemetry. 2. Will continue therapy with heparin, Aggrastat, beta ruma, aspirin and statin. 3. Dr. Briones, her transplant physician, will be consulted in anticipation of cardiac catheterization. 4. Cardiac catheterization and coronary intervention will be scheduled tomorrow. The patient understands the risks and benefits and wishes to proceed. She understands the risk of possible renal failure and need for dialysis. I will follow her for cardiology during her hospitalization. I will also see her back for follow up in our office after discharge. MD CLAY Joshi/DEQUAN /12:28 PM /12:50 PM
--- NOTE | 2016-11-30 14:25 | MB ---
cc: ELIZA BUI MD DATE OF CONSULTATION: 11/30/2016. REASON FOR CONSULTATION: History of renal transplant who came with chest pain. HISTORY OF PRESENT ILLNESS: This is a very pleasant 71-year-old female with past medical history of hypertension, diabetes mellitus controlled on diet, chronic obstructive pulmonary disease, sleep apnea, history of renal transplant in 2009, who came to the hospital with complaint of chest pain. I was called to see the patient because she has history of a kidney transplant. She has been following with Dr. Briones. She got the renal transplant from her son who in a car accident, and this was in 2009. She has been following with Dr. Briones since then and it seems like her creatinine has been in the range of 0.8 to 1.3 most of the time. She had a creatinine of 1.2 on admission which has improved now to 0.8 to 0.9. The patient mainly came because she had this chest pain that started initially with shortness of breath. She has retrosternal chest pain in the left shoulder area which started on Thursday night and lasted for an hour. She took aspirin and went to bed and she was feeling better and then the breathing got worse and the chest pain was getting worse and it was a pressure-like pain associated with excessive sweating and more shortness of breath and nausea. There was no vomiting except she vomited once. She went to the [facility] Emergency Room and she was transferred here. She still has retrosternal pain but it is better than before. She denies any dysuria or hematuria or difficulty in passing urine. There is no history of diarrhea. She has been taking her medications regularly. She did not take any nonsteroidal antiinflammatory drugs. PAST MEDICAL HISTORY: 1. Hypertension. 2. Diabetes mellitus controlled on diet. 3. COPD. 4. Sleep apnea. 5. History of renal transplant in 2009. 6. History of end-stage renal disease from before. PAST SURGICAL HISTORY: 1. Renal transplant in April of 2009. 2. History of tooth extraction. 3. Hysterectomy. 4. Skin cancer removal. REVIEW OF SYSTEMS: There is no history of fever. She has had this worsening shortness of breath associated with nausea and diaphoresis and chest pain which was retrosternal and then the left shoulder and it was intermittent off and on. It is not related to exertion. There is no abdominal pain. There is no dysuria or hematuria. There is no history of diarrhea. She vomited once when she was in the emergency room. SOCIAL HISTORY: The patient is single, lives alone. She stopped smoking in 1980. Occasionally drinks alcoholic beverages. FAMILY HISTORY: Her sister has some renal disease. The mother had heart disease. ALLERGIES She is allergic to no medications. MEDICATIONS: 1. Tirofiban. 2. Blanquita-Colace one tablet twice a day. 3. Metoprolol 50 milligrams twice a day. 4. Aspirin 81 milligrams daily. 5. Lisinopril 20 milligrams once a day. 6. Protonix 40 milligrams daily. 7. Pravachol 40 milligrams once a day. 8. Tacrolimus 1 milligrams q. 12 hours. 9. Nitroglycerin 2% one inch q. 6 hours. PHYSICAL EXAMINATION: GENERAL: On examination, the patient is awake and alert and she is not in acute distress. VITAL SIGNS: Her last blood pressure is 149/77. Her blood pressure was much higher before and the highest recorded was 222/90. Her temperature is 96.5%. Oxygen saturation on room air is 97%. HEAD, EYES, EARS, NOSE, THROAT: The pupils are equal and reacting to light. Nonicteric sclerae. Conjunctivae are normal. NECK: The neck is supple. JVD is not elevated. LUNGS: The patient has bilateral good air entry with occasional wheezing. HEART: S1 and S2 regular rhythm. ABDOMEN: Abdomen obese, soft and lax. There is no tenderness. Bowel sounds positive. EXTREMITIES: She has mild edema in the legs. INVESTIGATIONS: WBC count is 8.4, hemoglobin 14.4, platelet count of 153,000, neutrophils 81.4%. Sodium 138, potassium 3.2, chloride 103, bicarbonate 24.5, BUN 19, creatinine 0.8 and the repeat one is 0.9, calcium 9.0. AST and ALT normal. Troponin I is 0.9. Total protein is 7.4. Albumin 3.7. PTT is 38. Urinalysis showing that there is no proteinuria. IMAGING STUDIES: The patient had a chest x-ray done which shows some interstitial prominence. ASSESSMENT AND PLAN: 1. Chest pain with possible cardiac ischemia. 2. Hypertension. Uncontrolled. 3. Post renal transplant. 4. Hypokalemia. 5. Diabetes mellitus diet-controlled. The patient has a history of renal transplant and it seems like her creatinine is at her baseline. Now she is going for cardiac catheterization tomorrow. I discussed with the patient about the possibility of contrast nephropathy. She seems to understand about that and agreed to proceed with the cardiac catheterization, which is important. She has been seen by cardiology also. I will give her some gentle hydration. She is on Prograf 1 milligram twice a day. She has been following with Dr. Briones so I will ask Dr. Briones to follow her from tomorrow. Thank you for the consultation. MD TATIANA Marinelli/DEQUAN /1:23 PM /2:08 PM
[2016-11-30] MEDS: MAGNESIUM SULFATE 1 GM PREMIX 100 ML IV SCH ×2 (14:51→16:00)
[2016-11-30 15:17] LABS: APTT (PATIENT) 38.4 SEC (24.3-30.1)
[2016-11-30] MEDS: POTASSIUM CHLORIDE INJ 10 MEQ in SODIUM CHLOR 0.9% 1000 ML INJ 1,000 ML IV SCH (15:40)
[2016-11-30] MEDS ORDERED: MAGNESIUM SULFATE 1 GM PREMIX 100 ML IV ONE (17:00)
[2016-11-30] MEDS: ACETAMINOPHEN/HYDROcodone 325 MG/5 MG TAB PO PRN ×2 (17:55→23:33)
[2016-11-30] MEDS: METOPROLOL SUCCINATE 50 MG EXTENDED RELEASE TAB PO SCH (21:09)
[2016-11-30 21:34] LABS: AUTOMATED NEUTROPHIL # 11.7 TH/MM3 (1.8-7.7); BASOPHIL % 0.2 % (0.0-2.0); EOSINOPHIL % 0.1 % (0.0-4.0); HEMATOCRIT 43.6 % (35.0-46.0); LYMPH % 5.1 % (9.0-44.0); LYMPHOCYTE # 0.7 TH/MM3 (1.0-4.8); MEAN CELL VOLUME 89.7 FL (80.0-100.0); MEAN CORPUSCULAR HEMOGLOBIN 30.2 PG (27.0-34.0); MEAN CORPUSCULAR HGB CONC 33.6 % (32.0-36.0); NEUT % 88.6 % (16.0-70.0); PLATELET COUNT 173 TH/MM3 (150-450); RED BLOOD COUNT 4.86 MIL/MM3 (4.00-5.30); RED CELL DISTRIBUTION WIDTH 12.7 % (11.6-17.2); WHITE BLOOD COUNT 13.2 TH/MM3 (4.0-11.0)
[2016-11-30 21:38] LABS: HEMO FLAGS DIFF FINAL
[2016-11-30 22:21] LABS: APTT (PATIENT) 51.8 SEC (24.3-30.1)
[2016-12-01] VITALS (12 sets, daily range): BP systolic 145–169; BP diastolic 71–86; PULSE 71–96; RESP 15–28; TEMP 97.8–98.7; O2SAT 91–94
[2016-12-01] MEDS: TIROFIBAN INFUSION INJ 250 ML IV SCH ×2 (01:26→14:57)
[2016-12-01] MEDS: ONDANSETRON HCL 4 MG/2 ML VIAL IVP PRN (01:26)
[2016-12-01] MEDS ORDERED: CHLORHEXIDINE GLUCONATE 2 % 1 PACK (2 CLOTHS)(extra cloths) TOPICAL PRN (01:30)
[2016-12-01] MEDS ORDERED: CHLORHEXIDINE GLUCONATE 2 % 1 PACK (2 CLOTHS)(taper/protocol) TOPICAL SCH (04:00)
[2016-12-01] MEDS: HEPARIN-D5W 25,000 U/250 ML 250 ML IV PRN (04:27)
[2016-12-01 04:51] LABS: AUTOMATED NEUTROPHIL # 12.2 TH/MM3 (1.8-7.7); BASOPHIL % 0.1 % (0.0-2.0); EOSINOPHIL % 0.1 % (0.0-4.0); HEMATOCRIT 41.9 % (35.0-46.0); HEMO FLAGS DIFF FINAL; LYMPH % 4.7 % (9.0-44.0); LYMPHOCYTE # 0.7 TH/MM3 (1.0-4.8); MEAN CELL VOLUME 89.8 FL (80.0-100.0); MEAN CORPUSCULAR HEMOGLOBIN 29.5 PG (27.0-34.0); MEAN CORPUSCULAR HGB CONC 32.8 % (32.0-36.0); MONO % 7.2 % (0.0-8.0); NEUT % 87.9 % (16.0-70.0); PLATELET COUNT 172 TH/MM3 (150-450); RED BLOOD COUNT 4.67 MIL/MM3 (4.00-5.30); RED CELL DISTRIBUTION WIDTH 13.1 % (11.6-17.2); WHITE BLOOD COUNT 13.9 TH/MM3 (4.0-11.0)
[2016-12-01] MEDS: POTASSIUM CHLORIDE INJ 10 MEQ in SODIUM CHLOR 0.9% 1000 ML INJ 1,000 ML IV SCH ×3 (04:52→22:42)
[2016-12-01 05:03] LABS: APTT (PATIENT) 57.7 SEC (24.3-30.1)
[2016-12-01 05:05] LABS: BICARBONATE 25.3 MEQ/L (21.0-32.0); POTASSIUM 3.8 MEQ/L (3.5-5.1)
[2016-12-01] MEDS: NITROGLYCERIN 2% OINT 1 GM PACKET TOP SCH ×3 (05:05→18:00)
[2016-12-01 05:07] LABS: HDL CHOLESTEROL 59.8 MG/DL (40.0-60.0)
[2016-12-01] MEDS: PANTOPRAZOLE SOD 40 MG DELAYED RELEASE TAB PO SCH (08:18)
[2016-12-01] MEDS: TACROLIMUS 1 MG CAP PO SCH ×2 (08:18→23:45)
[2016-12-01] MEDS: DOCUSATE SODIUM 50 MG/SENNA 8.6 MG TAB PO SCH ×2 (08:18→21:00)
[2016-12-01] MEDS: SODIUM CHLORIDE 0.9% FLUSH 10 ML FLUSH IV FLUSH SCH ×2 (08:18→23:46)
[2016-12-01] MEDS: LISINOPRIL 20 MG TAB PO SCH (09:00)
[2016-12-01] MEDS ORDERED: PRAVASTATIN SOD 40 MG TAB PO SCH (09:00)
[2016-12-01] MEDS: METOPROLOL SUCCINATE 50 MG EXTENDED RELEASE TAB PO SCH ×2 (09:00→23:46)
[2016-12-01] MEDS: ASPIRIN EC 81 MG TABEC PO SCH (09:00)
[2016-12-01 10:15] LABS: HEMOGLOBIN Ao 83.8 %; HEMOGLOBIN F 1.3 %; HEMOGLOBIN LA1C 1.9 %; HEMOGLOBIN P3 5.8 %
[2016-12-01] MEDS ORDERED: IOHEXOL 350 MG/ML 100 ML BTL (for Cath Lab) OTHER ONE (12:47)
[2016-12-01] MEDS: ACETAMINOPHEN/HYDROcodone 325 MG/5 MG TAB PO PRN (13:45)
--- NOTE | 2016-12-01 14:02 | HHI.NPPN ---
Subjective History of Present Illness patient is doing well, has some left shoulder pain Review of Systems Cardiovascular Cardiac: Chest Pain Objective Data Data Vital Signs Date Time Temp Pulse Resp B/P (MAP) Pulse Ox O2 Delivery O2 Flow Rate FiO2 12/01/16 12:01 98.0 80 28 164/79 (107) 94 12/01/16 12:00 81 12/01/16 11:00 71 16 169/86 (113) 93 12/01/16 10:27 93 12/01/16 10:00 71 12/01/16 10:00 71 15 166/79 (108) 94 12/01/16 09:02 78 17 161/74 (103) 92 12/01/16 08:00 98.2 71 19 151/81 (104) 93 12/01/16 08:00 71 12/01/16 07:01 80 22 160/71 (100) 93 12/01/16 04:00 97.8 84 18 145/75 (98) 93 12/01/16 04:00 84 12/01/16 00:00 92 12/01/16 00:00 97.9 92 20 153/75 (101) 91 11/30/16 20:00 98.2 88 24 142/67 (92) 94 11/30/16 20:00 88 11/30/16 19:50 95 11/30/16 16:00 97.9 89 18 150/67 (94) 91 -: 12/01/16 0354 12/01/16 0354 Physical Exam General Appearance: Well Developed, Well Nourished Neck Neck Exam: Neck Supple Pulmonary Resp Exam: Clear Bilaterally, Breath Sounds Equal Cardiology CV Exam: Regular, Normal Sinus Rhythm Gastrointestinal/Abdomen GI Exam: Soft, Non-Tender, Bowel Sounds Present Integumentary Skin Exam: Clear Extremeties Extremities Exam: No Edema Neurologic Neuro Exam: Alert, Awake, Oriented Assessment/Plan Problem List: (1) Kidney transplant status, cadaveric ICD Codes: Z94.0 - Kidney transplant status Plan: Cr 0.8 on Prograf 1 mg q 12 on IVF NS with KCL I increased the rate to 125 cc/hr explained dye toxicity and risk of ARF depending on heart cath and extent of dye used (2) Chest pain ICD Codes: R07.9 - Chest pain, unspecified Status: Acute (3) Hypertension, poor control ICD Codes: I10 - Essential (primary) hypertension Status: Acute Plan: Labile Problem Qualifiers (1) Chest pain: Qualified Codes: R07.9 - Chest pain, unspecified Melinda Briones MD Dec 01, 2016 14:02
--- NOTE | 2016-12-01 14:10 | HHI.NPPN ---
Subjective History of Present Illness patient is doing well, has some left shoulder pain Review of Systems Cardiovascular Cardiac: Chest Pain Objective Data Data Vital Signs Date Time Temp Pulse Resp B/P (MAP) Pulse Ox O2 Delivery O2 Flow Rate FiO2 12/01/16 12:01 98.0 80 28 164/79 (107) 94 12/01/16 12:00 81 12/01/16 11:00 71 16 169/86 (113) 93 12/01/16 10:27 93 12/01/16 10:00 71 12/01/16 10:00 71 15 166/79 (108) 94 12/01/16 09:02 78 17 161/74 (103) 92 12/01/16 08:00 98.2 71 19 151/81 (104) 93 12/01/16 08:00 71 12/01/16 07:01 80 22 160/71 (100) 93 12/01/16 04:00 97.8 84 18 145/75 (98) 93 12/01/16 04:00 84 12/01/16 00:00 92 12/01/16 00:00 97.9 92 20 153/75 (101) 91 11/30/16 20:00 98.2 88 24 142/67 (92) 94 11/30/16 20:00 88 11/30/16 19:50 95 11/30/16 16:00 97.9 89 18 150/67 (94) 91 -: 12/01/16 0354 12/01/16 0354 Physical Exam General Appearance: Well Developed, Well Nourished Neck Neck Exam: Neck Supple Pulmonary Resp Exam: Clear Bilaterally, Breath Sounds Equal Cardiology CV Exam: Regular, Normal Sinus Rhythm Gastrointestinal/Abdomen GI Exam: Soft, Non-Tender, Bowel Sounds Present Integumentary Skin Exam: Clear Extremeties Extremities Exam: No Edema Neurologic Neuro Exam: Alert, Awake, Oriented Assessment/Plan Problem List: (1) Kidney transplant status, cadaveric ICD Codes: Z94.0 - Kidney transplant status Plan: Cr 0.8 on Prograf 1 mg q 12 on IVF NS with KCL I increased the rate to 125 cc/hr/ add Mucomyst 1200 mg bid explained dye toxicity and risk of ARF depending on heart cath and extent of dye used (2) Chest pain ICD Codes: R07.9 - Chest pain, unspecified Status: Acute (3) Hypertension, poor control ICD Codes: I10 - Essential (primary) hypertension Status: Acute Plan: Labile Problem Qualifiers (1) Chest pain: Qualified Codes: R07.9 - Chest pain, unspecified Melinda Briones MD Dec 01, 2016 14:10
[2016-12-01] MEDS ORDERED: ACETYLCYSTEINE 20% 6,000 MG/30 ML ORAL SOLN VIAL PO SCH (14:15)
--- NOTE | 2016-12-01 15:38 | HHI.PR ---
Subjective Remarks This is a pleasant 71 y/o Female with hypertension, diet-controlled diabetes, COPD, sleep apnea, right kidney transplant in 2009, and family h/o early CAD presents with complaint of chest pain. Seen in his bedroom and discussed with nurse Mr. Lemus and with her Relative in the room. she will go later for Cardiac Catheterization. Objective Vital Signs Date Time Temp Pulse Resp B/P (MAP) Pulse Ox O2 Delivery O2 Flow Rate FiO2 12/01/16 14:00 72 12/01/16 12:01 98.0 80 28 164/79 (107) 94 12/01/16 12:00 81 12/01/16 11:00 71 16 169/86 (113) 93 12/01/16 10:27 93 12/01/16 10:00 71 12/01/16 10:00 71 15 166/79 (108) 94 12/01/16 09:02 78 17 161/74 (103) 92 12/01/16 08:00 98.2 71 19 151/81 (104) 93 12/01/16 08:00 71 12/01/16 07:01 80 22 160/71 (100) 93 12/01/16 04:00 97.8 84 18 145/75 (98) 93 12/01/16 04:00 84 12/01/16 00:00 92 12/01/16 00:00 97.9 92 20 153/75 (101) 91 11/30/16 20:00 98.2 88 24 142/67 (92) 94 11/30/16 20:00 88 11/30/16 19:50 95 11/30/16 16:00 97.9 89 18 150/67 (94) 91 I/O 11/30/16 11/30/16 11/30/16 12/01/16 12/01/16 12/01/16 07:00 15:00 23:00 07:00 15:00 23:00 Intake Total 480 ml 400 ml 1794 ml Balance 480 ml 400 ml 1794 ml Intake Oral 480 ml 200 ml 300 ml IV Total 200 ml 1494 ml # Voids 2 2 Result Diagram: 12/01/16 0354 12/01/16 0354 Imaging Last Impressions Chest X-Ray 11/29/161826 Signed Impressions: Service Date/Time: Saturday, November 29, 2016 18:42 - CONCLUSION: Fairly diffuse interstitial prominence. Charles Dexter MD Procedures None Other Results Laboratory Tests Test 11/29/16 18:15 11/30/16 06:38 11/30/16 11:30 12/01/16 03:54 Total Creatine Kinase 41 U/L B-Type Natriuretic Peptide 226 PG/ML Prothrombin Time 10.7 SEC Prothromb Time International Ratio 1.0 RATIO Hemoglobin A1c 6.3 % Blood Urea Nitrogen 19 MG/DL 18 MG/DL Creatinine 0.89 MG/DL 0.84 MG/DL Random Glucose 166 MG/DL 161 MG/DL Total Protein 7.4 GM/DL Albumin 3.7 GM/DL Calcium Level 9.0 MG/DL 8.4 MG/DL Alkaline Phosphatase 86 U/L Aspartate Amino Transf (AST/SGOT) 16 U/L Alanine Aminotransferase (ALT/SGPT) 19 U/L Total Bilirubin 0.7 MG/DL Sodium Level 138 MEQ/L 133 MEQ/L Potassium Level 3.2 MEQ/L 3.8 MEQ/L Chloride Level 103 MEQ/L 101 MEQ/L Carbon Dioxide Level 24.5 MEQ/L 25.3 MEQ/L Troponin I 0.92 NG/ML Nasal Screen MRSA (PCR) MRSA NOT DETECTED White Blood Count 13.9 TH/MM3 Red Blood Count 4.67 MIL/MM3 Hemoglobin 13.7 GM/DL Hematocrit 41.9 % Mean Corpuscular Volume 89.8 FL Mean Corpuscular Hemoglobin 29.5 PG Mean Corpuscular Hemoglobin Concent 32.8 % Red Cell Distribution Width 13.1 % Platelet Count 172 TH/MM3 Mean Platelet Volume 10.1 FL Neutrophils (%) (Auto) 87.9 % Lymphocytes (%) (Auto) 4.7 % Monocytes (%) (Auto) 7.2 % Eosinophils (%) (Auto) 0.1 % Basophils (%) (Auto) 0.1 % Neutrophils # (Auto) 12.2 TH/MM3 Lymphocytes # (Auto) 0.7 TH/MM3 Monocytes # (Auto) 1.0 TH/MM3 Eosinophils # (Auto) 0.0 TH/MM3 Basophils # (Auto) 0.0 TH/MM3 CBC Comment DIFF FINAL Differential Comment Activated Partial Thromboplast Time 57.7 SEC Magnesium Level 2.0 MG/DL Anion Gap 7 MEQ/L Estimat Glomerular Filtration Rate 67 ML/MIN Triglycerides Level 71 MG/DL Cholesterol Level 194 MG/DL LDL Cholesterol 120 MG/DL HDL Cholesterol 59.8 MG/DL Cholesterol/HDL Ratio 3.24 RATIO Objective Remarks GENERAL: Obesity, in no acute distress. SKIN: Warm and dry. HEAD: Atraumatic. Normocephalic. EYES: No scleral icterus. No injection or drainage. ENT: Tongue slightly dry. NECK: Trachea midline. CARDIOVASCULAR: Regular rate and rhythm. RESPIRATORY: Clear to auscultation. Breath sounds equal bilaterally. No wheezes , rales, or rhonchi. RR normal. GASTROINTESTINAL: Normoactive bowel sounds. Abdomen soft, non-tender, nondistended. No guarding. MUSCULOSKELETAL: Trace pitting pre-tibial edema bilaterally. BACK: No CVA tenderness bilaterally. NEUROLOGICAL: Awake and alert. Motor grossly within normal limits. Five out of 5 muscle strength in B/L arms and legs. Normal speech. PSYCHIATRIC: Normal mood and affect. Insight and judgement normal. Medications and IVs Current Medications Medications (Trade) Dose Ordered Sig/Tk Route Start Time Stop Time Status Last Admin (Ecotrin Ec) 81 mg DAILY PO 11/30/16 09:00 12/01/16 09:00 (NS Flush) 2 ml UNSCH PRN IV FLUSH 11/29/16 20:15 (NS Flush) 2 ml BID IV FLUSH 11/29/16 21:00 12/01/16 08:18 (Zofran Inj) 4 mg Q6H PRN IVP 11/29/16 20:15 12/01/16 01:26 (Tylenol) 650 mg Q6H PRN PO 11/29/16 20:15 11/30/16 05:24 (Drury 5-325 Mg) 1 tab Q4H PRN PO 11/29/16 20:15 12/01/16 13:45 (Morphine Inj) 2 mg Q3H PRN IV PUSH 11/29/16 20:15 11/30/16 14:52 (Blanquita-Colace) 1 tab BID PO 11/29/16 21:00 (Milk Of Magnesia Liq) 30 ml Q12H PRN PO 11/29/16 20:15 (Senokot) 17.2 mg Q12H PRN PO 11/29/16 20:15 (Dulcolax Supp) 10 mg DAILY PRN RECTAL 11/29/16 20:15 (Lactulose Liq) 30 ml DAILY PRN PO 11/29/16 20:15 (Prinivil) 20 mg DAILY PO 11/30/16 09:00 12/01/16 09:00 (Protonix) 40 mg DAILY PO 11/30/16 09:00 12/01/16 08:18 (Prograf) 1 mg Q12HR PO 11/29/16 21:00 12/01/16 08:18 Heparin Sodium/ Dextrose 250 ml @ 10 mls/hr TITRATE PRN IV 11/30/16 04:45 12/01/16 04:27 (Nitroglycerin 2% Oint) 1 inch Q6HR TOP 11/30/16 09:00 12/01/16 13:13 Tirofiban/Sodium Chloride 250 ml @ 17.01 mls/ hr [id number] IV 11/30/16 09:33 12/01/16 01:26 (Toprol Xl) 50 mg BID PO 11/30/16 21:00 12/01/16 09:00 (Apresoline Inj) 10 mg Q4H PRN IV PUSH 11/30/16 12:15 11/30/16 12:36 (Pravachol) 40 mg DAILY PO 12/01/16 09:00 12/01/16 08:17 Potassium Chloride 10 meq/ Sodium Chloride 1,005 ml @ 125 mls/hr Q8H3M IV 11/30/16 15:00 12/01/16 04:52 Miscellaneous Information Patient in critical care unit? Ass... Q361D .XX 12/01/16 01:30 (Chlorhexidine 2% Cloth) 3 pack DAILY@04 TOPICAL 12/01/16 04:00 12/05/16 04:01 12/01/16 04:00 (Chlorhexidine 2% Cloth) 3 pack UNSCH PRN TOPICAL 12/01/16 01:30 12/06/16 01:29 (Mucomyst 20% Liq) 1,200 mg BID PO 12/01/16 14:15 12/03/16 09:30 A/P Assessment and Plan 1. NSTEMI, Mild elevation of BNP to 226, Heparin drip started, Nitroglycerine, educational technology specialist consulted, Beta blockers Statin, Morphine, oxygen as needed, consulted Nephrology due to Kidney transplant previous to Cardiac Cath. 2. Hypertensive Urgency continue management 3. Acute on chronic kidney disease III, followed by Nephrology specialist, Given hydration, history of Kidney transplant 2009 asked [address] Doctor Anselmo Kidney transplant specialist 4. Hypokalemia replaced GI prophylaxis: Protonix DVT prophylaxis: SCDs, on heparin IV Code Status FULL CODE Discussed Condition With patient, nurse Mr. Lemus and her relative in the room, all questions answered to the best of my abilities. Discharge Planning Once cleared by specialists. Garrett Mejia MD Dec 01, 2016 15:38
[2016-12-01] MEDS ORDERED: MIDAZOLAM HCL 2 MG/2 ML VIAL ONE ×2 (15:47→16:26)
[2016-12-01] MEDS ORDERED: HEPARIN-NS/PF INJ 1,000 ML ONE (15:48)
[2016-12-01] MEDS ORDERED: SODIUM CHLORID 0.9% 500 ML INJ 500 ML ONE (15:49)
[2016-12-01] MEDS ORDERED: TIROFIBAN INFUSION INJ 250 ML IV ONE (15:58)
[2016-12-01] MEDS: ACETYLCYSTEINE 20% PO SCH ×2 (16:00→21:00)
[2016-12-01] MEDS ORDERED: HEPARIN SODIUM - IV 10,000 UNITS/10 ML VIAL ONE (16:15)
[2016-12-01] MEDS ORDERED: TICAGRELOR 90 MG TAB PO ONE (16:54)
--- NOTE | 2016-12-01 17:09 | CATHPROC ---
[employer] HIS Report Study Information Study Number Admission Scheduled Start Study Start [id number] Nov 30 2016 10:01AM 12/01/2016 Dec 01 2016 3:03PM [place] Service Cardiac Catheterization Admit Source Facility Department Other [facility] [employer] Professional Physician and Clinical Staff Initial Juliocesar Benavides Maxillofacial Prosthodontist Curry Cain,NEETU Recorder Sarah Moses RCIS Scrub Serafin Hernandez RCIS(BS) Procedures Performed Procedure Location (Site) Vessel Name Angiogram LV LV Ventricle Coronary Angiograms LCA Left Coronary Coronary Angiograms RCA Right Coronary Drug Eluting Inflatio LAD Prox Left Coronary PTCA LAD Prox Left Coronary Wire insertion Fem Art (right) Femoral Art Equipment Time Sports Management Intern Description Size Mfg Part Number Used/Scraped WIRE, BALANCE MIDDLEWEIGHT [id number] 16:15 [employer] 190CM Used 190CM (DB) *[id number] TRANSDUCER, TRUWAVE [id number] 15:53 GALINDO CULLEN * Used W/STOCKCOCK *[id number] 16:23 BOSTON SCI[employer] BALLOON, 2.5 15MM EMERGE MR 2.5 15MM Used *[id number] BALLOON, 3.5 12[id number] 16:36 [employer]ON SCI[employer]IFIC 3.5 12MM Used QUANTUM APEX MR *[id number] 534-548T *[id number] 534-520T *[id number] 534-552S *[id number] *[id number] 16:43 DAIG/[facility] [employer] ANGIOSEAL, FR6 VIP FR 6 Used *[id number] 15:53 MEDLINE INDUSTRIES PACK, CCL CUSTOM * Used *[id number] 15:53 MEDLINE PACER PEN, SKIN DUAL W/ RULER * Used *[id number] STENT, 3.5 26 RESOLUTE [id number] 16:30 MEDTRONIC 3.5 26 Used INTEGRITY RX *[id number] 16:25 Giraffic 30 KRISHAN INDEFLATOR Used *[id number] 16:15 Giraffic SHEATH, FR6.5 PRELUDE 11CM FR 6.5 038ACT Used *[id number] 15:53 Giraffic WIRE, 3MMJ .035 180CM 180CM Used *[id number] PROBE COVER, STERILE [id number] 15:53 MICROTEK MEDICAL * Used ULTRASOUND W/ GEL *[id number] 15:53 NAMIC MANIFOLD, 4 PORT * Used *[id number] 15:53 NAMIC TUBING, HIGH PRESSURE 48" 48" Used *[id number] 16:08 NYCOMED OMNIPAQUE, 300 MG, 50ML 50ML [id number] Used 15:53 NYCOMED OMNIPAQUE, 350 MG, 150ML 150ML [id number] Used [id number] 15:53 FOWLER MEDICAL BLANKET,WARM AIR CCL * Used *[id number] 15:53 TERUMO MEDICAL SHEATH, FR5 TERUMO (10CM) FR 5 Used *[id number] Equipment Model, Serial, Lot Number and Expiration Data Description Model Number Serial Number Lot Number Expiration Date ANGIOSEAL, FR6 VIP [id number] 09-22-2017 BALLOON, 2.5 15MM EMERGE MR [id number] 04-12-2019 BALLOON, 3.5 12MM NC QUANTUM [id number] 10-21-2019 APEX MR STENT, 3.5 26 RESOLUTE [id number] 09-07-2017 INTEGRITY RX History: Current Medications Medication Dosage/Unit Route Frequency Last Date/Time Taken LISINOPRIL Toprol ASA FISH OIL History: Risk Factors Family History of Hypertension Dyslipidemia Previous OR Previous Heart Failure Premature CAD Yes Yes Yes No No Prior Valve Prior PCI Prior CABG Surgery No No No Cerebrovascular Peripheral Artery Chronic Lung On Dialysis Diabetes Diabetes Therapy Disease Disease Disease No No No Yes Yes Diet History: Symptoms/Diagnosis Selection Items Chest pain Palpitations SOB History: Stress Tests Stress or Imaging Studies Performed No History: Other Disease Selection Items Cancer History: Other Current Smoker Method Quit Packs a Day Years Used Pack Years No Cigarettes 25 Years Ago 2 20 40 Labs Hgb (g/dl) Hct (%) Platelets (thousands) 11.60-17.00 35.00-51.00 150.00-450.00 13.7 41.9 172 Glucose (mg/dl) BUN (mg/dl) Creatinine (mg/dl) BUN:Creatinine (1:x) 74.00-106.00 7.00-18.00 0.50-1.30 10.00-20.00 161 18 0.8 22.5 Na (meq/l) K (meq/l) Cl (meq/l) CO2 (mmol/L) Ca (mg/dl) 136.00-145.00 3.50-5.10 98.00-107.00 21.00-32.00 8.50-10.10 133 3.8 101 25.3 8.4 INR (PTT:PT) 0.90-1.10 1 Troponin I (ng/ml) CPK (u/l) CPK-MB (ng/ML) 0.02-0.05 26.00-308.00 0.50-3.60 0.92 41 Not Drawn Medication Medication Total Dose (Bolus/Oral) Medication Total Dosage/Unit 1% XYLOCAINE 20 mL BRILINTA 180 mg FENTANYL 50 mcg HEPARIN 6000 units NTG (IC) 200 mcg VERSED 2 mg Medications (Bolus/Oral) Medication Time Given Dosage/Unit Administered By Reason 1% XYLOCAINE 12/01/2016 4:02:42 PM 20 mL Juliocesar Arana 20 mL 1% XYLOCAINE given in lab by Juliocesar Arana in Right Groin via Subcutaneous. VERSED 12/01/2016 4:05:02 PM 1 mg Curry Cain 1 mg VERSED given in lab by Curry Cain RN via Peripheral IV. Ordered by Juliocesar Arana. FENTANYL 12/01/2016 4:05:28 PM 50 mcg Curry Cain 50 mcg FENTANYL given in lab by Curry Cain RN via Peripheral IV. Ordered by Juliocesar Arana. HEPARIN 12/01/2016 4:18:00 PM 6000 units Curry Cain 6000 units HEPARIN given in lab by Curry Cain RN via Peripheral IV. Ordered by Juliocesar Arana. NTG (IC) 12/01/2016 4:24:03 PM 200 mcg Juliocesar Arana 200 mcg NTG (IC) given in lab by Juliocesar Arana via Intra-coronary. Ordered by Juliocesar Arana. VERSED 12/01/2016 4:27:11 PM 1 mg BrentonoCurry 1 mg VERSED given in lab by Curry Cain RN via Peripheral IV. Ordered by Juliocesar Arana. BRILINTA 12/01/2016 4:58:45 PM 180 mg Curry Cain 180 mg BRILINTA given in lab by Curry Cain RN via Oral. Ordered by Juliocesar Arana. Medication (Drip) Medication Time Given Dosage/Unit Concentration/Unit Diluent (ml) Solutio n AGGRASTAT DRIP 12/01/2016 3:48:09 PM 0.15 mcg/kg/min 17 mg 250 NaCl .9 Patient arrived on 0.15 mcg/kg/min AGGRASTAT DRIP in Right Antecubital via Peripheral IV. Pump/Drip F low = 12.71 ml/hr using NaCl .9 with a concentration of 17 mg in 250 ml. IV Solutions 12/01/2016 3:48:40 PM 0 mL (IV) NaCl .9 Patient arrived on IV Solutions in Right Wrist via Peripheral IV. Pump/Drip Flow = 20 ml/hr using NaC l .9. Initial Case Assessment Cardiovascular HR Rhythm NIBP 86 SR 169/87 Circulatory - Right Pulses Dorsalis Pedis Femoral 2 2 Scale (0,1,2,3,4,d) Circulatory - Left Pulses Dorsalis Pedis Femoral 2 2 Scale (0,1,2,3,4,d) Respiration - General Respiration Rate SpO2 (%) (B/min) 20 94 Final Case Assessment Cardiovascular HR Rhythm NIBP Chest Pain 83 sr 173/93 0 Circulatory - Right Pulses Dorsalis Pedis Femoral 2 2 Scale (0,1,2,3,4,d) Circulatory - Left Pulses Dorsalis Pedis Femoral 2 2 Scale (0,1,2,3,4,d) Neurological State Oriented to time-place- Alert Moves all extremities person Respiration - General Respiration Rate SpO2 (%) O2 (lpm) (B/min) 15 93 2 Chronological Log Time Study Chronological Log 15:31:11 Patient arrived via Bed. 15:31:12 Patient Name, D.O.B, / Armband Verified By R.N. 15:31:13 Consent signed by the physician and the patient and verified by the [employer] staff. 15:31:14 Pre-op and post- op instructions given; patient acknowledges understanding of instructions. 15:31:14 Verbal Stimulation=2 Physical Stimulation=2 Airway=2 Respiration=2 TOTAL=8. (0=absent, 1=li mited, 2=present) 15:31:15 Presedation assessment performed by [employer] Professional RN. 15:31:17 Patient has been NPO for Less than 6Hrs. 15:31:18 Skin Breakdown-NONE 15:31:19 Patient Warmer Placed on the Table. 15:31:21 A # 20 IV was noted in the Antecubital (right). Grade = 0 15:31:23 History and physical on the chart or being dictated. Vitals capture started with the following parameters, Patient=Adult, Interval=3 min, Initial Pr gnnfat=013 mmHg, 15:44:25 Deflation Rate=5 mmHg, Cuff placed on Left Ankle 15:46:23 HR=86 bpm, SIKB=203/87 mmhg, SpO2=93 %, Resp=21 B/min, Pain=0, Angeline=10, Lara=2 Assessment: Initial Case, HR=86 BPM, Rhythm=SR, WQYO=977/87 mmhg Right Pulses: Jer Ped=2, Femoral=2 15:46:24 Left Pulses: Jer Ped=2, Femoral=2 Respiration: Resp=20 B/min, SpO2=94 % 15:47:37 A # 20 IV was noted in the Wrist (right). Grade = 0 Patient arrived on 0.15 mcg/kg/min AGGRASTAT DRIP in Right Antecubital via Peripheral IV. Pump/ Drip Flow = 12.71 15:48:09 ml/hr using NaCl .9 with a concentration of 17 mg in 250 ml. 15:48:24 HR=82 bpm, NAMM=908/91 mmhg, SpO2=91.0 %, Resp=18 B/min, Pain=0, Angeline=10, Lara=2 15:48:40 Patient arrived on IV Solutions in Right Wrist via Peripheral IV. Pump/Drip Flow = 20 ml/hr using NaCl .9. 15:51:26 HR=84 bpm, PTQF=926/87 mmhg, SpO2=93.0 %, Resp=17 B/min, Pain=0, Angeline=10, Lara=2 15:51:38 Pressure channel 1 zeroed. 15:54:08 Reference ECG taken 15:54:26 HR=91 bpm, FVKH=099/85 mmhg, SpO2=93.0 %, Resp=17 B/min, Pain=0, Angeline=10, Lara=2 15:57:31 HR=83 bpm, VIFV=537/90 mmhg, SpO2=94 %, Resp=17 B/min, Angeline=10 16:00:27 HR=80 bpm, VUVV=193/88 mmhg, SpO2=94.0 %, Resp=17 B/min, Angeline=10 Time Out. Correct patient, correct procedure, correct physician, power injector loaded, or not loaded with contrast with 16:02:23 surgical team present. Time Out Concurred by MD and individual staff in procedure. 16:02:29 Case Start 16:02:42 20 mL 1% XYLOCAINE given in lab by Juliocesar Arana in Right Groin via Subcutaneous. 16:03:29 HR=85 bpm, UFOA=215/93 mmhg, SpO2=92.0 %, Resp=17 B/min 16:04:43 Access site was Right Femoral Artery. 16:04:53 A SHEATH, FR5 TERUMO (10CM) FR 5 was advanced into the Fem Art (right) using the Percutaneo us technique. 16:05:02 1 mg VERSED given in lab by Curry Cain, NEETU via Peripheral IV. Ordered by Dalia Arana 16:05:28 50 mcg FENTANYL given in lab by Curry Cain, NEETU via Peripheral IV. Ordered by Abraham Arana. 16:06:15 HR=74 bpm, VTRP=970/87 mmhg, Resp=12 B/min A PIGTAIL ANG. INFINITI CATHETER FR 5 was advanced over a wire. OMNIPAQUE, 350 MG, 150ML 150ML was used 16:06:17 for injections. Recorded Pressure: LV, HR=74, Condition=Condition 1 16:06:29 (Left Ventricle) LV 122/20/33 Recorded Pressure: LV, HR=71, Condition=Condition 1 16:06:32 (Left Ventricle) LV 144/23/31 16:07:33 The LV was injected at 10 cc/sec for a total of 30. OMNIPAQUE, 300 MG, 50ML 50ML used. Recorded Pressure: LV, Ao, HR=76, Condition=Condition 1 16:08:14 (Left Ventricle) LV 143/27/30, (Aorta) Ao 133/71/98 16:08:32 Catheter was removed A JL 4.0 INFINITI CATHETER FR 5 was advanced over a wire. OMNIPAQUE, 350 MG, 150ML 150ML was us ed for 16:08:33 injections. 16:09:21 HR=78 bpm, UGEG=556/75 mmhg, SpO2=94.0 %, Resp=14 B/min, Angeline=10 Recorded Pressure: Ao, HR=77, Condition=Condition 1 16:09:35 (Aorta) Ao 139/74/102 16:09:48 The LCA was injected and visualized at various angles. OMNIPAQUE, 350 MG, 150ML 150ML used . 16:12:22 HR=79 bpm, UCAW=677/82 mmhg, SpO2=94.0 %, Resp=13 B/min 16:13:49 Catheter was removed A AR MOD INFINITI CATHETER FR 5 was advanced over a wire. OMNIPAQUE, 350 MG, 150ML 150ML was us ed for 16:13:50 injections. 16:14:40 The RCA was injected and visualized at various angles. OMNIPAQUE, 350 MG, 150ML 150ML used . 16:15:07 Catheter was removed 16:15:26 HR=82 bpm, WHJW=874/89 mmhg, SpO2=95.0 %, Resp=14 B/min A SHEATH, FR6.5 PRELUDE 11CM FR 6.5 was exchanged in the Fem Art (right). This was necessary in order to 16:16:13 accomodate a larger catheter. 16:18:00 6000 units HEPARIN given in lab by Curry Cain RN via Peripheral IV. Ordered by Juliocesar Arana. 16:18:30 HR=85 bpm, UDWS=939/90 mmhg, SpO2=94.0 %, Resp=13 B/min A XB LAD 4.0 GUIDE CATHETER FR 6 was advanced over a wire. OMNIPAQUE, 350 MG, 150ML 150ML was u sed for 16:18:47 injections. 16:20:53 A WIRE, BALANCE MIDDLEWEIGHT 190CM (DB) 190CM was inserted via Fem Art (right). 16:21:26 HR=80 bpm, XPZQ=292/88 mmhg, SpO2=95.0 %, Resp=12 B/min, Angeline=10 16:23:08 Activated Clotting Time Drawn 16:24:03 200 mcg NTG (IC) given in lab by Juliocesar Arana via Intra-coronary. Ordered by Raghu Arana. 16:24:23 HR=84 bpm, BSHI=505/87 mmhg, SpO2=95.0 %, Resp=12 B/min A BALLOON, 2.5 15MM EMERGE MR 2.5 15MM was inserted over WIRE, BALANCE MIDDLEWEIGHT 190CM (DB ) 16:24:44 190CM via the LAD Prox. A BALLOON, 2.5 15MM EMERGE MR 2.5 15MM over a WIRE, BALANCE MIDDLEWEIGHT 190CM (DB) 190CM in the 16:24:46 LAD Prox was inflated using a 30 KRISHAN INDEFLATOR at 14 krishan for 20 sec. A BALLOON, 2.5 15MM EMERGE MR 2.5 15MM over a WIRE, BALANCE MIDDLEWEIGHT 190CM (DB) 190CM in the 16:25:23 LAD Prox was inflated using a 30 KRISHAN INDEFLATOR at 14 krishan for 30 sec. 16:27:11 1 mg VERSED given in lab by Curry Cain RN via Peripheral IV. Ordered by Dalia Arana 16:28:08 Balloon Removed. 16:28:28 HR=86 bpm, OXHA=101/105 mmhg, SpO2=95 %, Resp=20 B/min A STENT, 3.5 26 RESOLUTE INTEGRITY RX 3.5 26 was advanced through a XB LAD 4.0 GUIDE CATHETER F R 6 over a 16:30:16 WIRE, BALANCE MIDDLEWEIGHT 190CM (DB) 190CM. 16:30:33 HR=82 bpm, KYIR=057/91 mmhg, SpO2=93.0 %, Resp=16 B/min A STENT, 3.5 26 RESOLUTE INTEGRITY RX 3.5 26 was deployed using a 30 KRISHAN INDEFLATOR at 9 atmosp heres for 35 16:32:00 seconds in the LAD Prox. 16:33:01 Delivery device removed 16:33:34 HR=84 bpm, DFJX=867/97 mmhg, SpO2=95.0 %, Resp=20 B/min 16:34:25 ACT (Normal Range 90-180) = 395 16:36:34 HR=82 bpm, LMOH=588/89 mmhg, SpO2=95.0 %, Resp=16 B/min A BALLOON, 3.5 12MM NC QUANTUM APEX MR 3.5 12MM was inserted over WIRE, BALANCE MIDDLEWEIGHT 19 0CM 16:36:58 (DB) 190CM via the LAD Prox. A BALLOON, 3.5 12MM NC QUANTUM APEX MR 3.5 12MM over a WIRE, BALANCE MIDDLEWEIGHT 190CM (DB) 16:36:59 190CM in the LAD Prox was inflated using a 30 KRISHAN INDEFLATOR at 18 krishan for 18 sec. A BALLOON, 3.5 12MM NC QUANTUM APEX MR 3.5 12MM over a WIRE, BALANCE MIDDLEWEIGHT 190CM (DB) 16:37:52 190CM in the LAD Prox was inflated using a 30 KRISHAN INDEFLATOR at 20 krishan for 30 sec. A BALLOON, 3.5 12MM NC QUANTUM APEX MR 3.5 12MM over a WIRE, BALANCE MIDDLEWEIGHT 190CM (DB) 16:38:49 190CM in the LAD Prox was inflated using a 30 KRISHAN INDEFLATOR at 18 krishan for 25 sec. 16:39:24 Balloon Removed. 16:39:32 HR=85 bpm, FQQE=339/88 mmhg, SpO2=96.0 %, Resp=17 B/min, Angeline=10 16:40:44 Wire removed 16:40:47 Catheter was removed 16:42:36 HR=84 bpm, SJAF=009/96 mmhg, SpO2=95.0 %, Resp=16 B/min 16:42:44 An injection in the Fem Art (right) was made through the SHEATH, FR6.5 PRELUDE 11CM FR 6.5. 16:42:51 Betadine applied to site. 16:43:19 ANGIOSEAL, FR6 VIP FR 6 placement in the Fem Art (right) 16:45:16 Case End 16:45:34 HR=86 bpm, PVCC=391/106 mmhg, SpO2=95.0 %, Resp=17 B/min 16:45:45 Sterile dressing applied to site 16:48:35 HR=88 bpm, IZTB=655/92 mmhg, SpO2=93.0 %, Resp=16 B/min, Angeline=10 16:51:33 HR=85 bpm, QQWH=756/97 mmhg, SpO2=93.0 %, Resp=17 B/min 16:54:33 HR=83 bpm, MIVY=804/93 mmhg, SpO2=93.0 %, Resp=15 B/min Assessment: Final Case, HR=83 BPM, Rhythm=sr, WIAO=174/93 mmhg, Chest Pain=0 Right Pulses: Jer Ped=2, Femoral=2 16:56:25 Left Pulses: Jer Ped=2, Femoral=2 Neurological: State=Alert, Ox3, GARCIA Respiration: Resp=15 B/min, SpO2=93 %, O2=2 lpm 16:56:26 Cine recording checked. 16:57:01 Vitals capture stopped. 16:58:45 180 mg BRILINTA given in lab by Curry Cain RN via Oral. Ordered by Juliocesar Arana. 17:00:22 No case complications noted. 17:00:29 Implantable Device card placed in patient's chart. 17:00:35 Patient moved to bed 17:02:03 Patient transported to DOCU 17:06:27 Bedside Report will be given. End Study - Contrast Media Used In Study Contrast Total Opened (mL) Total Used (mL) Total Wasted (mL) Omnipaque 160 160 0 End Study - Maximum Contrast Load Max Contrast Load (mL) 600.0 End Study - Radiation Exposure Fluoro Time (minutes) 6.6 End Study - Sheaths Sheaths Pulled By Sheath Hold Time (min) Juliocesar Arana End Study - Patient Disposition Complications Transferred To Interventional Outcome No Critical Care Bed successful
[2016-12-01] MEDS ORDERED: SODIUM CHLOR 0.9% 1000 ML INJ 1,000 ML IV SCH (20:27)
[2016-12-01] MEDS ORDERED: MISC INFORMATION XX ONE (20:30)
[2016-12-01] MEDS ORDERED: ATORVASTATIN 80 MG TAB PO SCH (21:00)
[2016-12-02] VITALS (15 sets, daily range): BP systolic 141–156; BP diastolic 68–86; PULSE 84–100; RESP 14–16; TEMP 97.1–99.1; O2SAT 92–96
[2016-12-02] MEDS: NITROGLYCERIN 2% OINT 1 GM PACKET TOP SCH ×2 (00:42→06:07)
--- NOTE | 2016-12-02 06:49 | MA ---
cc: ELIZABETH ORELLANA DATE 12/01/2016 INDICATIONS Ail-[id number] myocardial function, class IV angina, cardiomyopathy. PROCEDURE PERFORMED 1. Retrograde left heart catheterization with left ventriculography and selective coronary angiography. 2. Angioplasty and stenting of the proximal left anterior descending artery. 3. Moderate sedation. ACCESS SITE Right femoral artery using ultrasound guidance. EQUIPMENT USED A 5-Peruvian pigtail catheter, 5-Peruvian JL-4 and AR modified coronary artery catheters. A 2.5 x 15 mm balloon, 3.5 x 26 mm Resolute stent at 9 atmospheres, postdilated with 3.5 x 12 mm noncompliant balloon at 20 atmospheres. MEDICATIONS 1. Versed IV 2. Fentanyl IV 3. Heparin IV 4. Nitroglycerin IC 5. Aggrastat IV drip 6. Brilinta 180 mg p.o. CONTRAST Omnipaque 150 cc COMPLICATIONS None BLOOD LOSS Less than 10 cc METHOD OF HEMOSTASIS Angio-Seal closure RESULTS HEMODYNAMICS Heart rate 80 beats per minute. Left ventricular end-diastolic pressure 22 mm. Left ventricle 140/20 to 140/74/102. LEFT VENTRICULOGRAPHY Left ventricular ejection fraction 45%. Wall motion focal anteroapical and apical hypokinesis. The rest of ventricle is hyperdynamic. No mitral regurgitation seen. CORONARY ANGIOGRAPHY Left main coronary artery is patent. The left anterior descending artery has sequential 80 and 95% stenosis in the proximal portion. Mid and distal LAD patent. First diagonal artery has 30% ostial stenosis. The circumflex artery patent. OM1 patent. The ramus intermedius is large and patent. The right coronary artery is a dominant vessel with 30% stenosis in the midportion. PDA has 30% ostial stenosis, PLV is patent. Stenosis in the proximal LAD 20 mm long, pre-GISELL flow III, post-GISELL flow III, post stenosis zero. POST INTERVENTION ANGIOGRAPHY Post intervention angiography revealed excellent patency of the stented segments and no evidence of dissection, thrombosis or distal embolization. CONCLUSIONS 1. Wwx-[id number] myocardial function. 2. Coronary artery disease with severe stenosis of the proximal left anterior descending artery. 3. Mild left ventricular dysfunction consistent with ischemic cardiomyopathy. 4. Successful angioplasty and stenting of the proximal left end anterior descending artery DISPOSITION Ms. Acuña will be monitored on telemetry after her procedure. We will continue aggressive modification of her cardiac risk factors. We will continue long-term therapy with Brilinta and aspirin. MD RONNIE Joshi /4:54 PM /6:30 AM
[2016-12-02 08:31] LABS: AUTOMATED NEUTROPHIL # 9.3 TH/MM3 (1.8-7.7); BASOPHIL % 0.1 % (0.0-2.0); EOSINOPHIL % 0.1 % (0.0-4.0); HEMATOCRIT 37.5 % (35.0-46.0); HEMO FLAGS DIFF FINAL; LYMPH % 5.5 % (9.0-44.0); LYMPHOCYTE # 0.6 TH/MM3 (1.0-4.8); MEAN CORPUSCULAR HEMOGLOBIN 29.5 PG (27.0-34.0); MEAN CORPUSCULAR HGB CONC 33.2 % (32.0-36.0); MONO % 10.1 % (0.0-8.0); NEUT % 84.2 % (16.0-70.0); PLATELET COUNT 151 TH/MM3 (150-450); RED BLOOD COUNT 4.21 MIL/MM3 (4.00-5.30); RED CELL DISTRIBUTION WIDTH 12.6 % (11.6-17.2)
[2016-12-02 08:38] LABS: APTT (PATIENT) 26.4 SEC (24.3-30.1)
[2016-12-02 09:00] LABS: BICARBONATE 23.2 MEQ/L (21.0-32.0); POTASSIUM 3.8 MEQ/L (3.5-5.1)
[2016-12-02] MEDS: DOCUSATE SODIUM 50 MG/SENNA 8.6 MG TAB PO SCH ×2 (09:00→09:43)
[2016-12-02] MEDS: ACETYLCYSTEINE 20% PO SCH (09:00)
[2016-12-02] MEDS ORDERED: TICAGRELOR 90 MG TAB PO SCH (09:00)
[2016-12-02 09:06] LABS: HDL CHOLESTEROL 58.2 MG/DL (40.0-60.0)
[2016-12-02] MEDS: TACROLIMUS 1 MG CAP PO SCH (09:43)
[2016-12-02] MEDS: PANTOPRAZOLE SOD 40 MG DELAYED RELEASE TAB PO SCH (09:43)
[2016-12-02] MEDS: ASPIRIN EC 81 MG TABEC PO SCH (09:43)
[2016-12-02] MEDS: SODIUM CHLORIDE 0.9% FLUSH 10 ML FLUSH IV FLUSH SCH (09:44)
[2016-12-02] MEDS: LISINOPRIL 20 MG TAB PO SCH (09:44)
[2016-12-02] MEDS: METOPROLOL SUCCINATE 50 MG EXTENDED RELEASE TAB PO SCH (09:44)
--- NOTE | 2016-12-02 09:58 | EKG ---
Date Performed: 12/01/2016 Time Performed: 23:45:16 PTAGE: 71 years EKG: Sinus rhythm Extensive ST-T changes may be due to myocardial ischemia Abnormal ECG PREVIOUS TRACING : 11/29/2016 18.17 Compared to the prior study, T-wave inversion is present in the anterolateral leads, suggesting ischemia. DOCTOR: Dominic Stallings Interpretating Date/Time 12/02/2016 09:56:10
--- NOTE | 2016-12-02 10:06 | EKG ---
Date Performed: 12/02/2016 Time Performed: 05:45:06 PTAGE: 71 years EKG: Sinus rhythm Short IL interval Extensive ST-T changes may be due to myocardial ischemia Abnormal ECG PREVIOUS TRACING : 12/01/2016 23.45 Compared to prior tracing no significant change DOCTOR: Dominic Stallings Interpretating Date/Time 12/02/2016 10:04:13
[2016-12-02] MEDS ORDERED: ATOR1TAB18 PO (10:57)
[2016-12-02] MEDS ORDERED: ASPI-99 PO (10:57)
[2016-12-02] MEDS ORDERED: BRIL90TA PO (10:57)
--- NOTE | 2016-12-02 10:57 | HHI.PR ---
Subjective Remarks This is a pleasant 71 y/o Female with hypertension, diet-controlled diabetes, COPD, sleep apnea, right kidney transplant in 2010, and family h/o early CAD presents with complaint of chest pain. 12/02: Seen in her bedroom stable okay to discharge from post closing specialist standpoint, her renal function is preserved after procedure placed a call to Doctor Briones to evaluate the new results to discharge patient home. Conclusion after Cardiac Cath, NSTEMI Coronary artery disease with severe stenosis of the Proximal Left anterior descending artery, Mild left ventricular dysfunction consistent with ischemic Cardiomyopathy, successful angioplasty and stenting of the proximal left end anterior descending artery. recommended to continue Aspirin and Brilinta by Doctor Juliocesar Arana, as per doctor Briones Nephrology specialist okay to discharge Home. Objective Vital Signs Date Time Temp Pulse Resp B/P (MAP) Pulse Ox O2 Delivery O2 Flow Rate FiO2 12/02/16 10:04 94 12/02/16 09:17 96 12/02/16 08:41 84 12/02/16 07:54 88 12/02/16 07:54 98.9 95 16 156/86 (109) 92 12/02/16 06:00 100 12/02/16 05:00 88 12/02/16 04:00 98 12/02/16 03:00 94 12/02/16 03:00 99.1 98 14 154/81 (105) 92 12/02/16 02:00 84 12/02/16 01:00 90 12/02/16 00:00 86 12/01/16 23:00 98.7 93 16 153/78 (103) 93 12/01/16 23:00 96 12/01/16 14:00 72 12/01/16 12:01 98.0 80 28 164/79 (107) 94 12/01/16 12:00 81 12/01/16 11:00 71 16 169/86 (113) 93 I/O 12/01/16 12/01/16 12/01/16 12/02/16 12/02/16 12/02/16 06:59 14:59 22:59 06:59 14:59 22:59 Intake Total 1794 ml 616 ml Output Total 625 ml Balance 1794 ml -9 ml Intake Oral 300 ml 240 ml IV Total 1494 ml 376 ml Output Urine Total 625 ml # Voids 2 Result Diagram: 12/02/1679912/02/16 08 Imaging Last Impressions Chest X-Ray 11/29/16 1827 Signed Impressions: Service Date/Time: Tuesday, November 29, 2016 18:42 - CONCLUSION: Fairly diffuse interstitial prominence. Charles Dexter MD Procedures None Other Results Laboratory Tests Test 11/29/16 18:15 11/30/16 06:38 11/30/16 11:30 12/01/16 03:54 B-Type Natriuretic Peptide 226 PG/ML Prothrombin Time 10.7 SEC Prothromb Time International Ratio 1.0 RATIO Hemoglobin A1c 6.3 % Blood Urea Nitrogen 19 MG/DL 18 MG/DL Creatinine 0.89 MG/DL 0.84 MG/DL Random Glucose 166 MG/DL 161 MG/DL Total Protein 7.4 GM/DL Albumin 3.7 GM/DL Calcium Level 9.0 MG/DL 8.4 MG/DL Alkaline Phosphatase 86 U/L Aspartate Amino Transf (AST/SGOT) 16 U/L Alanine Aminotransferase (ALT/SGPT) 19 U/L Total Bilirubin 0.7 MG/DL Sodium Level 138 MEQ/L 133 MEQ/L Potassium Level 3.2 MEQ/L 3.8 MEQ/L Chloride Level 103 MEQ/L 101 MEQ/L Carbon Dioxide Level 24.5 MEQ/L 25.3 MEQ/L Troponin I 0.92 NG/ML Nasal Screen MRSA (PCR) MRSA NOT DETECTED Magnesium Level 2.0 MG/DL Test 12/02/16 08:00 White Blood Count 11.0 TH/MM3 Red Blood Count 4.21 MIL/MM3 Hemoglobin 12.4 GM/DL Hematocrit 37.5 % Mean Corpuscular Volume 89.0 FL Mean Corpuscular Hemoglobin 29.5 PG Mean Corpuscular Hemoglobin Concent 33.2 % Red Cell Distribution Width 12.6 % Platelet Count 151 TH/MM3 Mean Platelet Volume 9.4 FL Neutrophils (%) (Auto) 84.2 % Lymphocytes (%) (Auto) 5.5 % Monocytes (%) (Auto) 10.1 % Eosinophils (%) (Auto) 0.1 % Basophils (%) (Auto) 0.1 % Neutrophils # (Auto) 9.3 TH/MM3 Lymphocytes # (Auto) 0.6 TH/MM3 Monocytes # (Auto) 1.1 TH/MM3 Eosinophils # (Auto) 0.0 TH/MM3 Basophils # (Auto) 0.0 TH/MM3 CBC Comment DIFF FINAL Differential Comment Activated Partial Thromboplast Time 26.4 SEC Blood Urea Nitrogen 13 MG/DL Creatinine 0.85 MG/DL Random Glucose 148 MG/DL Calcium Level 8.4 MG/DL Sodium Level 138 MEQ/L Potassium Level 3.8 MEQ/L Chloride Level 107 MEQ/L Carbon Dioxide Level 23.2 MEQ/L Anion Gap 8 MEQ/L Estimat Glomerular Filtration Rate 66 ML/MIN Total Creatine Kinase 42 U/L Triglycerides Level 84 MG/DL Cholesterol Level 145 MG/DL LDL Cholesterol 70 MG/DL HDL Cholesterol 58.2 MG/DL Cholesterol/HDL Ratio 2.49 RATIO Objective Remarks GENERAL: Obesity, in no acute distress. SKIN: Warm and dry. HEAD: Atraumatic. Normocephalic. EYES: No scleral icterus. No injection or drainage. ENT: Tongue slightly dry. NECK: Trachea midline. CARDIOVASCULAR: Regular rate and rhythm. RESPIRATORY: Clear to auscultation. Breath sounds equal bilaterally. No wheezes , rales, or rhonchi. RR normal. GASTROINTESTINAL: Normoactive bowel sounds. Abdomen soft, non-tender, nondistended. No guarding. MUSCULOSKELETAL: Trace pitting pre-tibial edema bilaterally. BACK: No CVA tenderness bilaterally. NEUROLOGICAL: Awake and alert. Motor grossly within normal limits. Five out of 5 muscle strength in B/L arms and legs. Normal speech. PSYCHIATRIC: Normal mood and affect. Insight and judgement normal. Medications and IVs Current Medications Medications (Trade) Dose Ordered Sig/Tk Route Start Time Stop Time Status Last Admin (Ecotrin Ec) 81 mg DAILY PO 11/30/16 09:00 12/02/16 09:43 (NS Flush) 2 ml UNSCH PRN IV FLUSH 11/29/16 20:15 (NS Flush) 2 ml BID IV FLUSH 11/29/16 21:00 12/02/16 09:44 (Zofran Inj) 4 mg Q6H PRN IVP 11/29/16 20:15 12/01/16 01:26 (Tylenol) 650 mg Q6H PRN PO 11/29/16 20:15 11/30/16 05:24 ([place] 5-325 Mg) 1 tab Q4H PRN PO 11/29/16 20:15 12/01/16 13:45 (Morphine Inj) 2 mg Q3H PRN IV PUSH 11/29/16 20:15 11/30/16 14:52 (Blanquita-Colace) 1 tab BID PO 11/29/16 21:00 (Milk Of Magnesia Liq) 30 ml Q12H PRN PO 11/29/16 20:15 (Senokot) 17.2 mg Q12H PRN PO 11/29/16 20:15 (Dulcolax Supp) 10 mg DAILY PRN RECTAL 11/29/16 20:15 (Lactulose Liq) 30 ml DAILY PRN PO 11/29/16 20:15 (Prinivil) 20 mg DAILY PO 11/30/16 09:00 12/02/16 09:44 (Protonix) 40 mg DAILY PO 11/30/16 09:00 12/02/16 09:43 (Prograf) 1 mg Q12HR PO 11/29/16 21:00 12/02/16 09:43 (Nitroglycerin 2% Oint) 1 inch Q6HR TOP 11/30/16 09:00 12/02/16 06:07 (Toprol Xl) 50 mg BID PO 11/30/16 21:00 12/02/16 09:44 (Apresoline Inj) 10 mg Q4H PRN IV PUSH 11/30/16 12:15 11/30/16 12:36 Potassium Chloride 10 meq/ Sodium Chloride 1,005 ml @ 125 mls/hr Q8H3M IV 11/30/16 15:00 12/01/16 22:42 Miscellaneous Information Patient in critical care unit? Ass... [id number] .XX 12/01/16 01:30 (Chlorhexidine 2% Cloth) 3 pack DAILY@04 TOPICAL 12/01/16 04:00 12/05/16 04:01 12/01/16 04:00 (Chlorhexidine 2% Cloth) 3 pack UNSCH PRN TOPICAL 12/01/16 01:30 12/06/16 01:29 Non-Formulary Medication ACETYLCYSTEINE 20%-1,200 MG(6 ML)... BID PO 12/01/16 16:00 12/03/16 09:01 12/02/16 09:00 (Brilinta) 90 mg BID PO 12/02/16 09:00 12/02/16 09:44 (Lipitor) 80 mg HS PO 12/01/16 21:00 12/01/16 23:45 A/P Assessment and Plan 1. NSTEMI, Mild elevation of BNP to 226, Heparin drip started, Nitroglycerine, post closing specialist consulted, Beta blockers Statin, Morphine, oxygen as needed, consulted Nephrology due to Kidney transplant previous to Cardiac Cath. Conclusion after Cardiac Cath, NSTEMI Coronary artery disease with severe stenosis of the Proximal Left anterior descending artery, Mild left ventricular dysfunction consistent with ischemic Cardiomyopathy, successful angioplasty and stenting of the proximal left end anterior descending artery. recommended to continue Aspirin and Brilinta by Doctor Juliocesar Arana, as per doctor Briones Nephrology specialist okay to discharge Home. 2. Hypertensive Urgency better control will continue present management 3. Acute on chronic kidney disease III, followed by Nephrology specialist, Given hydration, history of Kidney transplant 2009 asked for Doctor Briones Kidney transplant specialist, stable improved her Creatinine, okay to discharge from Doctor Briones. 4. Hypokalemia replaced GI prophylaxis: Protonix DVT prophylaxis: SCDs, on heparin IV Code Status FULL CODE Discussed Condition With patient, nurse Mr. Lemus and her relative in the room, all questions answered to the best of my abilities. Discharge Planning Discharge Home now. Garrett Mejia MD Dec 02, 2016 10:57
--- NOTE | 2016-12-02 11:03 | HHI.DS ---
Discharge Summary Admission Date Nov 30, 2016 at 10:01 Discharge Date: Dec 02, 2016 Admitting Diagnosis chest pain, hypertension poor control (1) NSTEMI (non-ST elevated myocardial infarction) ICD Code: I21.4 - Non-ST elevation (NSTEMI) myocardial infarction Diagnosis: Principal (2) Hypertensive emergency ICD Code: I16.1 - Hypertensive emergency Diagnosis: Principal (3) Acute kidney injury superimposed on chronic kidney disease ICD Code: N17.9 - Acute kidney failure, unspecified; N18.9 - Chronic kidney disease, unspecified Diagnosis: Principal (4) Hypokalemia ICD Code: E87.6 - Hypokalemia Diagnosis: Principal Procedures NSTEMI Coronary artery disease with severe stenosis of the Proximal Left anterior descending artery, Mild left ventricular dysfunction consistent with ischemic Cardiomyopathy, successful angioplasty and stenting of the proximal left end anterior descending artery. recommended to continue Aspirin and Brilinta by Doctor Juliocesar Arana Brief History - From Admission Patient evaluated at ~0840. 71-year-old female with history of hypertension, diet-controlled diabetes, COPD, sleep apnea, right kidney transplant in 2009, and family h/o early CAD presents with complaint of chest pain. Patient states she had a "little episode" of chest pain on Thursday night which lasted about one hour. She took two 81 mg aspirin at that time and sat down and went to bed. She states yesterday she felt a little short of breath but she did her chores but then last night she went out and started to feel "terrible" substernal chest pain described as "pressure". She admits to radiation of pain to the left shoulder with associated diaphoresis, shortness of breath, and nausea. She also had a mild headache at that time. She states the pain was still present upon arrival to the ED. The patient did receive 3 doses of nitroglycerin in the ED as well as 324 mg of aspirin. The patient states the pain has been intermittent since it started. She does admit to chest pain being worse on exertion. She also has dyspnea on exertion. She states she has some palpitations yesterday and this morning. She states earlier it did feel like a "cannonball" was sitting on her chest and currently it feels like a "cantaloupe ". She was given 2 mg of IV morphine at 6 AM this morning, but she states it made her feel nauseous and she was given Zofran. She denies any numbness or tingling in the upper extremities, focal extremity weakness, blurred vision, double vision, dizziness, lightheadedness, or syncope. She admits to chronic swelling in the left leg stating she has poor circulation. She denies any recent fevers or chills, cold or cough symptoms. Denies any abdominal pain, vomiting, dysuria, diarrhea, constipation. Denies h/o HLD. She had a nuclear stress test followed by cardiac catheterization years ago by Dr. Nicholson, but required no intervention. She has not seen Dr. Nicholson in years. When she was in her late 30's she was told by a doctor that she had a previous NM (possibly from EKG?). Patient states she has been stressed as her sister's has cancer and her sister is the bag filler machine operator for both he and herself. CBC/BMP: 12/02/16 0800 12/02/16 0800 Significant Findings Laboratory Tests Test 11/29/16 18:15 11/30/16 00:35 11/30/16 06:38 11/30/16 09:49 Blood Urea Nitrogen 26 MG/DL (7-18) 19 MG/DL (7-18) Creatinine 1.20 MG/DL (0.50-1.00) Random Glucose 120 MG/DL (74-106) 166 MG/DL (74-106) Aspartate Amino Transf (AST/SGOT) 14 U/L (15-37) Estimat Glomerular Filtration Rate 44 ML/MIN (>89) 63 ML/MIN (>89) 59 ML/MIN (>89) Troponin I LESS THAN 0.02 NG/ML 0.90 NG/ML (0.02-0.05) 0.92 NG/ML (0.02-0.05) B-Type Natriuretic Peptide 226 PG/ML (0-100) Neutrophils (%) (Auto) 81.4 % (16.0-70.0) Lymphocytes # (Auto) 0.9 TH/MM3 (1.0-4.8) Activated Partial Thromboplast Time 30.5 SEC (24.3-30.1) Potassium Level 3.2 MEQ/L (3.5-5.1) Hemoglobin A1c 6.3 % (4.3-6.0) Test 11/30/16 10:08 11/30/16 11:30 11/30/16 14:06 11/30/16 21:09 Activated Partial Thromboplast Time 38.0 SEC (24.3-30.1) 38.4 SEC (24.3-30.1) 51.8 SEC (24.3-30.1) White Blood Count 13.2 TH/MM3 (4.0-11.0) Neutrophils (%) (Auto) 88.6 % (16.0-70.0) Lymphocytes (%) (Auto) 5.1 % (9.0-44.0) Neutrophils # (Auto) 11.7 TH/MM3 (1.8-7.7) Lymphocytes # (Auto) 0.7 TH/MM3 (1.0-4.8) Test 12/01/16 03:54 12/02/16 08:00 White Blood Count 13.9 TH/MM3 (4.0-11.0) Neutrophils (%) (Auto) 87.9 % (16.0-70.0) 84.2 % (16.0-70.0) Lymphocytes (%) (Auto) 4.7 % (9.0-44.0) 5.5 % (9.0-44.0) Neutrophils # (Auto) 12.2 TH/MM3 (1.8-7.7) 9.3 TH/MM3 (1.8-7.7) Lymphocytes # (Auto) 0.7 TH/MM3 (1.0-4.8) 0.6 TH/MM3 (1.0-4.8) Monocytes # (Auto) 1.0 TH/MM3 (0-0.9) 1.1 TH/MM3 (0-0.9) Activated Partial Thromboplast Time 57.7 SEC (24.3-30.1) Random Glucose 161 MG/DL (74-106) 148 MG/DL (74-106) Calcium Level 8.4 MG/DL (8.5-10.1) 8.4 MG/DL (8.5-10.1) Sodium Level 133 MEQ/L (136-145) Estimat Glomerular Filtration Rate 67 ML/MIN (>89) 66 ML/MIN (>89) LDL Cholesterol 120 MG/DL (0-99) Monocytes (%) (Auto) 10.1 % (0.0-8.0) Imaging Last Impressions Chest X-Ray 11/29/16 6024 Signed Impressions: Service Date/Time: Tuesday, November 29, 2016 18:42 - CONCLUSION: Fairly diffuse interstitial prominence. Charles Dexter MD PE at Discharge GENERAL: Obesity, in no acute distress. SKIN: Warm and dry. HEAD: Atraumatic. Normocephalic. EYES: No scleral icterus. No injection or drainage. ENT: Tongue slightly dry. NECK: Trachea midline. CARDIOVASCULAR: Regular rate and rhythm. RESPIRATORY: Clear to auscultation. Breath sounds equal bilaterally. No wheezes , rales, or rhonchi. RR normal. GASTROINTESTINAL: Normoactive bowel sounds. Abdomen soft, non-tender, nondistended. No guarding. MUSCULOSKELETAL: Trace pitting pre-tibial edema bilaterally. BACK: No CVA tenderness bilaterally. NEUROLOGICAL: Awake and alert. Motor grossly within normal limits. Five out of 5 muscle strength in B/L arms and legs. Normal speech. PSYCHIATRIC: Normal mood and affect. Insight and judgement normal. Hospital Course This is a pleasant 71 y/o Female with hypertension, diet-controlled diabetes, COPD, sleep apnea, right kidney transplant in 2009, and family h/o early CAD presents with complaint of chest pain. 12/02: Seen in her bedroom stable okay to discharge from cash reconciliation specialist standpoint, her renal function is preserved after procedure placed a call to Doctor Briones to evaluate the new results to discharge patient home. Conclusion after Cardiac Cath, NSTEMI Coronary artery disease with severe stenosis of the Proximal Left anterior descending artery, Mild left ventricular dysfunction consistent with ischemic Cardiomyopathy, successful angioplasty and stenting of the proximal left end anterior descending artery. recommended to continue Aspirin and Brilinta by Doctor Juliocesar Arana, as per doctor Briones Nephrology specialist okay to discharge Home. Assessment and Plan 1. NSTEMI, Mild elevation of BNP to 226, Heparin drip started, Nitroglycerine, cash reconciliation specialist consulted, Beta blockers Statin, Morphine, oxygen as needed, consulted Nephrology due to Kidney transplant previous to Cardiac Cath. Conclusion after Cardiac Cath, NSTEMI Coronary artery disease with severe stenosis of the Proximal Left anterior descending artery, Mild left ventricular dysfunction consistent with ischemic Cardiomyopathy, successful angioplasty and stenting of the proximal left end anterior descending artery. recommended to continue Aspirin and Brilinta by Doctor Juliocesar Arana, as per doctor Briones Nephrology specialist okay to discharge Home. 2. Hypertensive Urgency better control will continue present management 3. Acute on chronic kidney disease III, followed by Nephrology specialist, Given hydration, history of Kidney transplant 2009 asked for Doctor Anselmo Kidney transplant specialist, stable improved her Creatinine, okay to discharge from Doctor Briones. 4. Hypokalemia replaced GI prophylaxis: Protonix DVT prophylaxis: SCDs, on heparin IV Code Status FULL CODE Discussed Condition With patient, nurse, all questions answered to the best of my abilities. Discharge Planning Discharge Home now. Pt Condition on Discharge: Good Discharge Disposition: Discharge Home Discharge Time: <= 30 minutes Discharge Instructions DIET: Follow Instructions for: Heart Healthy Diet Activities you can perform: Regular-No Restrictions Other Activity Instructions: No strenous exercise Garrett Mejia MD Dec 02, 2016 11:03
--- NOTE | 2016-12-02 12:14 | PD.CARD.PN ---
Subjective Subjective Remarks No CP or SOB, feels better Objective Medications Administered Medications Medications (Trade) Dose Ordered Sig/Tk Route PRN Reason Start Time Stop Time Status Last Admin Dose Admin Aspirin (Ecotrin Ec) 81 mg DAILY PO 11/30/16 09:00 12/02/16 09:43 Sodium Chloride (NS Flush) 2 ml BID IV FLUSH 11/29/16 21:00 12/02/16 09:44 Ondansetron HCl (Zofran Inj) 4 mg Q6H PRN IVP NAUSEA OR VOMITING 11/29/16 20:15 12/01/16 01:26 Acetaminophen (Tylenol) 650 mg Q6H PRN PO FEVER/PAIN SCALE 1 TO 2 11/29/16 20:15 11/30/16 05:24 Acetaminophen/ Hydrocodone Bitart (Peralta 5-325 Mg) 1 tab Q4H PRN PO PAIN SCALE 3 TO 5 11/29/16 20:15 12/01/16 13:45 Morphine Sulfate (Morphine Inj) 2 mg Q3H PRN IV PUSH Pain 6-10 11/29/16 20:15 11/30/16 14:52 Lisinopril (Prinivil) 20 mg DAILY PO 11/30/16 09:00 12/02/16 09:44 Pantoprazole Sodium (Protonix) 40 mg DAILY PO 11/30/16 09:00 12/02/16 09:43 Tacrolimus (Prograf) 1 mg Q12HR PO 11/29/16 21:00 12/02/16 09:43 Nitroglycerin (Nitroglycerin 2% Oint) 1 inch Q6HR TOP 11/30/16 09:00 12/02/16 06:07 Metoprolol Succinate (Toprol Xl) 50 mg BID PO 11/30/16 21:00 12/02/16 09:44 Hydralazine HCl (Apresoline Inj) 10 mg Q4H PRN IV PUSH SBP> OR = 180, DBP> OR = 100 11/30/16 12:15 11/30/16 12:36 Potassium Chloride 10 meq/ Sodium Chloride 1,005 ml @ 125 mls/hr Q8H3M IV 11/30/16 15:00 12/01/16 22:42 Chlorhexidine Gluconate (Chlorhexidine 2% Cloth) 3 pack DAILY@04 TOPICAL 12/01/16 04:00 12/05/16 04:01 12/01/16 04:00 Non-Formulary Medication ACETYLCYSTEINE 20%-1,200 MG(6 ML)... BID PO 12/01/16 16:00 12/03/16 09:01 12/02/16 09:00 Ticagrelor (Brilinta) 90 mg BID PO 12/02/16 09:00 12/02/16 09:44 Atorvastatin Calcium (Lipitor) 80 mg HS PO 12/01/16 21:00 12/01/16 23:45 Vital Signs / I&O Vital Signs Date Time Temp Pulse Resp B/P (MAP) Pulse Ox O2 Delivery O2 Flow Rate FiO2 12/02/16 11:07 98 12/02/16 11:05 97.1 98 14 141/68 (92) 95 12/02/16 10:04 94 12/02/16 09:17 96 12/02/16 08:41 84 12/02/16 07:54 88 12/02/16 07:54 98.9 95 16 156/86 (109) 92 12/02/16 06:00 100 12/02/16 05:00 88 12/02/16 04:00 98 12/02/16 03:00 94 12/02/16 03:00 99.1 98 14 154/81 (105) 92 12/02/16 02:00 84 12/02/16 01:00 90 12/02/16 00:00 86 12/01/16 23:00 98.7 93 16 153/78 (103) 93 12/01/16 23:00 96 12/01/16 14:00 72 I/O 12/01/16 12/01/16 12/01/16 12/02/16 12/02/16 12/02/16 07:00 15:00 23:00 07:00 15:00 23:00 Intake Total 1794 ml 616 ml Output Total 625 ml Balance 1794 ml -9 ml Intake Oral 300 ml 240 ml IV Total 1494 ml 376 ml Output Urine Total 625 ml # Voids 2 Physical Exam GENERAL: In NAD. SKIN: Warm and dry. HEAD: Normocephalic. EYES: No scleral icterus. No injection or drainage. NECK: Supple, trachea midline. No JVD or lymphadenopathy. CARDIOVASCULAR: Regular rate and rhythm without murmurs, gallops, or rubs. RESPIRATORY: Breath sounds equal bilaterally. No accessory muscle use. GASTROINTESTINAL: Abdomen soft, non-tender, nondistended. MUSCULOSKELETAL: No cyanosis, or edema. Groin benign. Laboratory Laboratory Tests Test 12/02/16 08:00 White Blood Count 11.0 TH/MM3 Red Blood Count 4.21 MIL/MM3 Hemoglobin 12.4 GM/DL Hematocrit 37.5 % Mean Corpuscular Volume 89.0 FL Mean Corpuscular Hemoglobin 29.5 PG Mean Corpuscular Hemoglobin Concent 33.2 % Red Cell Distribution Width 12.6 % Platelet Count 151 TH/MM3 Mean Platelet Volume 9.4 FL Neutrophils (%) (Auto) 84.2 % Lymphocytes (%) (Auto) 5.5 % Monocytes (%) (Auto) 10.1 % Eosinophils (%) (Auto) 0.1 % Basophils (%) (Auto) 0.1 % Neutrophils # (Auto) 9.3 TH/MM3 Lymphocytes # (Auto) 0.6 TH/MM3 Monocytes # (Auto) 1.1 TH/MM3 Eosinophils # (Auto) 0.0 TH/MM3 Basophils # (Auto) 0.0 TH/MM3 CBC Comment DIFF FINAL Differential Comment Activated Partial Thromboplast Time 26.4 SEC Blood Urea Nitrogen 13 MG/DL Creatinine 0.85 MG/DL Random Glucose 148 MG/DL Calcium Level 8.4 MG/DL Sodium Level 138 MEQ/L Potassium Level 3.8 MEQ/L Chloride Level 107 MEQ/L Carbon Dioxide Level 23.2 MEQ/L Anion Gap 8 MEQ/L Estimat Glomerular Filtration Rate 66 ML/MIN Total Creatine Kinase 42 U/L Triglycerides Level 84 MG/DL Cholesterol Level 145 MG/DL LDL Cholesterol 70 MG/DL HDL Cholesterol 58.2 MG/DL Cholesterol/HDL Ratio 2.49 RATIO Assessment and Plan Problem List: (1) Stented coronary artery ICD Codes: Z95.5 - Presence of coronary angioplasty implant and graft (2) CAD (coronary artery disease) ICD Codes: I25.10 - Atherosclerotic heart disease of [place] coronary artery without angina pectoris (3) NSTEMI (non-ST elevated myocardial infarction) ICD Codes: I21.4 - Non-ST elevation (NSTEMI) myocardial infarction (4) Kidney transplant status, cadaveric ICD Codes: Z94.0 - Kidney transplant status (5) Hypertension, poor control ICD Codes: I10 - Essential (primary) hypertension Status: Acute Assessment and Plan Good LAD PCI result. Renal fx stable. Continue Brilinta and baby ASA. Continue aggressive risk factor modification. DC home once OK with nephrology. Will schedule outpt f/u. Juliocesar Arana MD Dec 02, 2016 12:14
--- NOTE | 2016-12-02 12:29 | HHI.NPPN ---
Subjective History of Present Illness patient is doing well, has some left shoulder pain Review of Systems Cardiovascular Cardiac: Chest Pain Objective Data Data Vital Signs Date Time Temp Pulse Resp B/P (MAP) Pulse Ox O2 Delivery O2 Flow Rate FiO2 12/02/16 12:23 90 12/02/16 11:07 98 12/02/16 11:05 97.1 98 14 141/68 (92) 95 12/02/16 10:04 94 12/02/16 09:17 96 12/02/16 08:41 84 12/02/16 07:54 88 12/02/16 07:54 98.9 95 16 156/86 (109) 92 12/02/16 06:00 100 12/02/16 05:00 88 12/02/16 04:00 98 12/02/16 03:00 94 12/02/16 03:00 99.1 98 14 154/81 (105) 92 12/02/16 02:00 84 12/02/16 01:00 90 12/02/16 00:00 86 12/01/16 23:00 98.7 93 16 153/78 (103) 93 12/01/16 23:00 96 12/01/16 14:00 72 -: 12/02/16 0800 12/02/16 0800 Physical Exam General Appearance: Well Developed, Well Nourished Neck Neck Exam: Neck Supple Pulmonary Resp Exam: Clear Bilaterally, Breath Sounds Equal Cardiology CV Exam: Regular, Normal Sinus Rhythm Gastrointestinal/Abdomen GI Exam: Soft, Non-Tender, Bowel Sounds Present Integumentary Skin Exam: Clear Extremeties Extremities Exam: No Edema Neurologic Neuro Exam: Alert, Awake, Oriented Assessment/Plan Problem List: (1) Kidney transplant status, cadaveric ICD Codes: Z94.0 - Kidney transplant status Plan: Cr 0.8 on Prograf 1 mg q 12 post LAD stent did well OK to discharge fu as out patient (2) Chest pain ICD Codes: R07.9 - Chest pain, unspecified Status: Acute Plan: post LAD stent (3) Hypertension, poor control ICD Codes: I10 - Essential (primary) hypertension Status: Acute Plan: stable Problem Qualifiers (1) Chest pain: Qualified Codes: R07.9 - Chest pain, unspecified Melinda Briones MD Dec 02, 2016 12:29
== END 2016-12-02 14:14 | disposition home or self-care (01) | DRG 247 ==
LOC: PHED 18:13 → PHEDA 20:09 → PH3A 21:18 → OBSVTOIN 11-30 10:01 → HIMN 11-30 11:12 → HCIS 12-01 15:30 → HCIN 12-01 22:26
PROVIDERS: ADMIT Internal Medicine; ATTEND Internal Medicine
PROC: 4A023N7 Measurement of Cardiac Sampling and Pressure, Left Heart, Percutaneous Approach (ICD-10-PCS; 2016-12-01)
PROC: B2111ZZ Fluoroscopy of Multiple Coronary Arteries using Low Osmolar Contrast (ICD-10-PCS; 2016-12-01)
PROC: B2151ZZ Fluoroscopy of Left Heart using Low Osmolar Contrast (ICD-10-PCS; 2016-12-01)
PROC: 027034Z Dilation of Coronary Artery, One Artery with Drug-eluting Intraluminal Device, Percutaneous Approach (ICD-10-PCS; principal; 2016-12-01 15:00)
DX: I21.4 Non-ST elevation (NSTEMI) myocardial infarction (principal); N17.9 Acute kidney failure, unspecified; E11.22 Type 2 diabetes mellitus with diabetic chronic kidney disease; I13.0 Hypertensive heart and chronic kidney disease with heart failure and stage 1 through stage 4 chronic kidney disease, or unspecified chronic kidney disease; I50.9 Heart failure, unspecified; Z94.0 Kidney transplant status; I16.1 Hypertensive emergency; J44.9 Chronic obstructive pulmonary disease, unspecified; I25.119 Atherosclerotic heart disease of native coronary artery with unspecified angina pectoris; I25.5 Ischemic cardiomyopathy; Z87.891 Personal history of nicotine dependence; Z85.828 Personal history of other malignant neoplasm of skin; Z82.49 Family history of ischemic heart disease and other diseases of the circulatory system; G47.30 Sleep apnea, unspecified; F40.240 Claustrophobia; I25.2 Old myocardial infarction; E87.6 Hypokalemia; R11.2 Nausea with vomiting, unspecified; N18.3 Chronic kidney disease, stage 3 (moderate)
CPT/HCPCS: 71010; 76937; 80048; 80053; 80061; 82550; 82565; 83036; 83735; 83880; 84484; 85002; 85025; 85610; 85730; 87641; 92928; 93005; 93458; 96374; 96375; C1725; C1769; C1874; C1887; C1893; G0378; J0360; J1644; J2250; J2270; J2405; J3010; J3246; J3475; J3480; J7030; J7040; J7507; Q9967